=== PATIENT | female | born 1970 | race Caucasian/White ===

== ENCOUNTER 2017-04-24 18:09 | Emergency (ER) | payer BC ==
[2017-04-24 20:08] VITALS: BP 131/73
--- NOTE | 2017-04-24 20:14 | RAD ---
HISTORY: Left hip pain with weightbearing COMPARISONS: None VIEWS: 4, Frontal view of the pelvis with frontal and frog-leg views of the left hip FINDINGS: BONE DENSITY: Normal. BONES: There is no displaced fracture. JOINTS: There is mild osteoarthritis of the hips and SI joints bilaterally. ALIGNMENT: There is no dislocation. SOFT TISSUES: Unremarkable. OTHER FINDINGS: None. IMPRESSION: OSTEOARTHRITIS. NO ACUTE OSSEOUS INJURY. IF SYMPTOMS PERSIST, RECOMMEND REPEAT IMAGING.
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
== END 2017-04-24 20:34 | disposition home or self-care (01) ==
LOC: UCCORT 18:09
DX: S73.102A Unspecified sprain of left hip, initial encounter (principal); X50.9XXA Other and unspecified overexertion or strenuous movements or postures, initial encounter; Y93.89 Activity, other specified; Y92.9 Unspecified place or not applicable; M16.12 Unilateral primary osteoarthritis, left hip; E66.9 Obesity, unspecified; Z88.5 Allergy status to narcotic agent; Z88.2 Allergy status to sulfonamides; Z88.1 Allergy status to other antibiotic agents; Z91.041 Radiographic dye allergy status; Z91.040 Latex allergy status
CPT/HCPCS: 99213; G0463

== ENCOUNTER 2017-06-23 09:53 | Emergency (ER) | payer BC ==
--- NOTE | 2017-06-23 11:48 | UC ---
Lower Extremity/Ankle HPI - HPI Summary HPI Summary: right calf pain and swelling began last night and is worse this morning--calf feels tight no SOB, PMH of DVT a few year ago - History of Current Complaint Chief Complaint: UCLowerExtremity Stated Complaint: RED AREA ON CALF OF LEG Time Seen by Provider: 06/23/17 11:37 Hx Obtained From: Patient Hx Last Menstrual Period: merina ?: No Onset/Duration: Sudden Onset, Lasting Days - began last night, Still Present, Worse Since - over night Severity Initially: Moderate Severity Currently: Moderate Pain Intensity: 4 Aggravating Factor(s): Nothing Alleviating Factor(s): Nothing Able to Bear Weight: Yes - Allergies/Home Medications Allergies/Adverse Reactions: Allergies Allergy/AdvReac Type Severity Reaction Status Date / Time MS Latex [Latex] Allergy Severe Difficulty Verified 06/23/17 10:04 Breathing MS Sulfa Antibiotics Allergy Severe See Comment Verified 06/23/17 10:04 [Sulfa Antibiotics] MS Benzonatate [Benzonatate] Allergy Intermediate Vomiting Verified 06/23/17 10: 04 MS Clindamycin [Clindamycin] Allergy Intermediate Diarrhea Verified 06/23/17 10: 04 MS Eletriptan [From Relpax] Allergy Intermediate See Comment Verified 06/23/17 10:04 MS Sumatriptan [From Imitrex] Allergy Intermediate See Comment Verified 10:04 MS Citalopram [From Celexa] Allergy Mild See Comment Verified 06/23/17 10:04 MS Oxycodone [From Percocet] Allergy Mild See Comment Verified 06/23/17 10:04 MS Iodinated Diagnostic Allergy Rash Verified 06/23/17 10:04 Agents [Iodinated Diagnostic Agents] Home Medications: Home Medications Melatonin 5 mg PO QPM 06/23/17 [History Confirmed 06/23/17] PMH/Surg Hx/FS Hx/Imm Hx Previously Healthy: No - Chronic pain Cardiovascular History: Hypertension GI/ History: Gastroesophageal Reflux - Surgical History Surgical History: Yes Surgery Procedure, Year, and Place: L3-L5 Laminectomy, 10/17/13, [facility] [place]; Appendectomy , , [facility] [place] - Family History Known Family History: Positive: Diabetes - Social History Occupation: Employed Full-time Lives: With Family Alcohol Use: None Alcohol Amount: 6 TIMES A YEAR Substance Use Type: None Smoking Status (MU): Never Smoked Tobacco - Immunization History Most Recent Influenza Vaccination: December 2016 Most Recent Tetanus Shot: unk Most Recent Pneumonia Vaccination: unk Review of Systems Constitutional: Chills Skin: Other - erythemic right lower leg Eyes: Negative ENT: Negative Respiratory: Negative Cardiovascular: Negative Gastrointestinal: Negative Genitourinary: Negative Motor: Negative Neurovascular: Negative Musculoskeletal: Myalgia - right lower extremity Neurological: Negative Psychological: Negative Is Patient Immunocompromised?: No All Other Systems Reviewed And Are Negative: Yes Physical Exam Triage Information Reviewed: Yes Appearance: Well-Appearing, No Pain Distress, Obese Vital Signs: Initial Vital Signs Temp 97.2 F 06/23/17 10:05 Pulse 80 06/23/17 10:05 Resp 18 06/23/17 10:05 BP 133/89 06/23/17 10:05 Pulse Ox 100 06/23/17 10:05 Vital Signs Reviewed: Yes Eye Exam: Normal Eyes: Positive: Conjunctiva Clear ENT Exam: Normal ENT: Positive: Normal ENT inspection, Hearing grossly normal, Pharynx normal, TMs normal, Uvula midline. Negative: Nasal congestion, Nasal drainage, Tonsillar swelling, Tonsillar exudate, Trismus, Muffled voice, Hoarse voice, Dental tenderness, Sinus tenderness Dental Exam: Normal Neck exam: Normal Neck: Positive: Supple, Nontender, No Lymphadenopathy Respiratory Exam: Normal Respiratory: Positive: Chest non-tender, Lungs clear, Normal breath sounds, No respiratory distress, No accessory muscle use Cardiovascular Exam: Normal Cardiovascular: Positive: RRR, No Murmur, Pulses Normal, Brisk Capillary Refill Musculoskeletal Exam: Normal Musculoskeletal: Positive: Edema @ - right lower and left lower extremity R>L Neurological Exam: Normal Neurological: Positive: Alert Psychological Exam: Normal Skin Exam: Normal Diagnostics - Laboratory Diagnostic Studies Completed/Ordered: US-no evidence of DVT Right leg Lower Extremity Course/Dx - Course Course Of Treatment: elevate leg, warm compress, keflex, tylenol/ibuprofen prn pain follow with pcp - Differential Dx/Diagnosis Provider Diagnoses: right lower extremity cellulitis Discharge - Discharge Plan Condition: Stable Disposition: HOME Prescriptions: Cephalexin CAP* [Keflex CAP*] 500 mg PO QID #40 cap Patient Education Materials: Cellulitis (ED), Warm Compress or Soak (ED) Forms: *Work Release Referrals: Mamta Knox MD [Primary Care Provider] - 3 Days
--- NOTE | 2017-06-23 12:44 | RAD ---
HISTORY: Left calf erythema and pain TECHNIQUE: Multiple transverse and longitudinal ultrasound images were obtained of the veins of the left lower extremity using grayscale, color Doppler, and spectral Doppler imaging with and without compression and with augmentation. FINDINGS: VEINS: The common femoral vein, deep femoral vein, femoral vein and popliteal vein are compressible throughout their course, with normal flow on color Doppler imaging and normal response to augmentation on spectral Doppler imaging. SOFT TISSUES: Multiple lymph nodes are visualized in the right groin the largest measuring 3.8 x 0.9 x 1.8 cm. Morphologically the lymph nodes do not appear to be abnormal. IMPRESSION: No sonographic evidence of deep vein thrombosis.
[2017-06-23 13:03] VITALS: BP 128/86
== END 2017-06-23 13:34 | disposition home or self-care (01) ==
LOC: UCEAST 09:53
DX: L03.115 Cellulitis of right lower limb (principal); R68.83 Chills (without fever); M79.1 Myalgia; I10 Essential (primary) hypertension; K21.9 Gastro-esophageal reflux disease without esophagitis; E66.9 Obesity, unspecified; Z88.5 Allergy status to narcotic agent; Z88.2 Allergy status to sulfonamides; Z88.8 Allergy status to other drugs, medicaments and biological substances; Z88.1 Allergy status to other antibiotic agents; Z91.041 Radiographic dye allergy status; Z91.040 Latex allergy status
CPT/HCPCS: 99212; G0463

== ENCOUNTER 2018-04-26 09:44 | Day surgery (SDC) | payer BC ==
[2018-04-26] MEDS ORDERED: Lidocaine 1% INJ* 10 MG/ML 30 ML SDV ONE (11:04)
[2018-04-26] MEDS ORDERED: Bupivacaine 0.5%* 50 ML VIAL ONE (11:05)
[2018-04-26] MEDS ORDERED: Dexamethasone IV* 4 MG/ML 1 ML (4 MG) ONE (11:05)
[2018-04-26 12:06] VITALS: BP 126/63
--- NOTE | 2018-04-26 15:43 | OP ---
DATE OF OPERATION: 04/26/18 [facility] DATE OF : 70 SURGEON: Kingsley Castro DPM. ROLL FORMING SUPERVISOR: None. ANESTHESIA: Local anesthesia. PRE-OP DIAGNOSES: Osteomyelitis, ulceration, and cellulitis second right toe. POST-OP DIAGNOSES: Osteomyelitis, ulceration, and cellulitis second right toe. OPERATIVE PROCEDURE: Amputation of second right toe. PATHOLOGY: Amputated digit and aerobic, anaerobic, and fungal cultures. HEMOSTASIS: Pneumatic ankle tourniquet. ESTIMATED BLOOD LOSS: Less than 10 cc. INDICATIONS: The patient with chronic painful hammertoe deformity with recurrent ulceration at the distal second right toe. She has had recent cellulitis and radiographs demonstrate findings consistent with osteomyelitis of the distal and middle phalanges of the second right toe. The patient has numerous allergies to antibiotics and to treat this infection, reduce pain, and minimize further antibiotic exposure, amputation of the digit is necessary. DESCRIPTION OF PROCEDURE: The patient was brought into the operating room and kept on the patient transport cart. The patient was prepped and draped in the usual fashion. Next, a 1:1 mixture of 1% lidocaine plain and 0.5% Marcaine plain were infiltrated as a digital block to the second right toe. Next, after assuring adequate anesthesia, two converging semi-elliptical incisions were made near the proximal interphalangeal joint and dissection was carried deep to the level of the joint where the digit was disarticulated at the proximal interphalangeal joint. A portion of the distal phalanx was also resected and a rongeur was used to ensure no sharp or rough edges. The surgical site was flushed with copious amounts of normal sterile saline. Culture swabs were taken for aerobic, anaerobic, and fungal cultures. The tendinous structures and deep tissue were reapproximated over the distal aspect of the amputation site and the subcutaneous tissues were also reapproximated with 4-0 Vicryl. The skin was then reapproximated with 4-0 nylon. The incision was dressed with Xeroform gauze and a bulky sterile dressing was applied and secured with Coban. Having appeared to have tolerated the procedures and anesthesia well, the patient was transported via cart from the operating room to Recovery in satisfactory condition and with capillary refill intact to the right foot. [id number]/[facility] #: [id number] [facility]
== END 2018-04-26 12:17 | disposition home or self-care (01) ==
LOC: OREAST 09:44
PROVIDERS: ATTEND Podiatrist Foot Surgery
DX: L03.031 Cellulitis of right toe (principal); M86.171 Other acute osteomyelitis, right ankle and foot; L97.518 Non-pressure chronic ulcer of other part of right foot with other specified severity; E11.9 Type 2 diabetes mellitus without complications; I10 Essential (primary) hypertension; J45.909 Unspecified asthma, uncomplicated; Z88.8 Allergy status to other drugs, medicaments and biological substances
CPT/HCPCS: 87070; 87073; 87102; 87205; 88305; 88311; J1100

== ENCOUNTER 2018-11-13 17:24 | Emergency (ER) | payer BC ==
--- OUTSIDE RECORDS SUMMARY | 2018-11-13 17:46 | XMS REPORT | Continuity of Care Document ---
:1970 External Reference #:[id number] Author Name Paul Joel DO MPH Address [address] [place] [address], [address] [place] [address] Care Team Providers Name Role Phone Mamta Knox M.D. Care Team Information Golf Course Manager Unavailable Mamta Knox M.D. 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 ETOH Use Rarely consumes alcohol Tobacco Use Start: Unknown Patient has never smoked Recreational Drug Use Denies Drug Use Smoking Status Reviewed: 11/08/18 Patient has never smoked Allergies, Adverse Reactions, Alerts Active Allergies Reaction Severity Comments Date Benzonatate GI reaction 01/11/2018 Lisinopril Urticaria 01/11/2018 Vinay Inhibitors swelling 01/11/2018 Augmentin Urticaria 01/11/2018 Celexa 01/11/2018 Contrast Dye 01/11/2018 Clindamycin 01/11/2018 Doxycycline 01/11/2018 Imitrex 01/11/2018 Latex 01/11/2018 Percocet 01/11/2018 Relpax 01/11/2018 Sulfa Antibiotics 01/11/2018 Medications Active Medications SIG Qnty Indications Ordering Date Provider Gabapentin si by mouth 180caps Paul Joel, 02/28/2018 300mg q8-12h as DO MPH Capsules directed code d 3 month due to insurance Oxycodone HCL si by mouth 120tabs Paul Joel, 01/11/2018 5mg every 4 to 6 DO, MPH Tablets hours as directed chronic pain patient Otezla 1 po q12h 60tabs Unknown 30mg Tablets Aleve Unknown 220mg Capsules Folic Acid 1 by mouth every Unknown 1mg Tablets day Vitamin B-6 si by mouth Unknown 500mg every day as Tablets directed Triamcinolone apply to the Unknown Acetonide affected area 0.1% Cream twice a day Stelara Unknown 130mg/26ML Solution Requip take 1 by mouth Unknown 1mg Tablets every evening as directed chronic. Potassium Chloride ER Unknown 10Meq Capsules ER Omeprazole 1 by mouth every Unknown 40mg day Capsules DR Gardiner (52 MG) Unknown 20mcg/24HR IUD Metrogel apply twice daily Unknown 1% Gel Iron High-Potency 1 by mouth daily Unknown 325mg Tablets Lasix 1 by mouth in the Unknown 20mg Tablets morning Bentyl 2 by mouth twice Unknown 10mg Capsules daily [facility] Vitamin B-12 1 by mouth daily Unknown 1000mcg Tablets Cetirizine HCL 1 by mouth daily Unknown 10mg Tablets Bisoprolol 2 by mouth daily Unknown Fumarate/Hydrochlorot hiazide 5-6.25mg Tablets Amitriptyline HCL 1 by mouth every Unknown 10mg at bedtime as Tablets directed Albuterol Inhalation 2 puffs every 4-6 Unknown hours for 90mcg/Dose Aerosol shortness of breath History Medications Gabapentin take 1 capsules by Unknown - 02/28/2018 100mg Capsules mouth every 8 hours ud. chronic pain. Hydrocodone-Acetaminophen take 1 tablet by mouth Unknown - 5-325mg every 8 hours as Tablets directed chronic pain. Methotrexate 4 by mouth once weekly Unknown - 08/10/2018 2.5mg Tablets Spiriva Handihaler 2 puffs inhaled daily Unknown - 08/10/2018 18mcg Capsules Vital Signs Date Vital Result Comment 11/08/2018 11:30am BP Systolic 132 mmHg BP Diastolic 84 mmHg Heart Rate 88 /min Respiratory Rate 20 /min Height 66 inches 5'6" Weight 323.00 lb Pain Level 7 Pain at this time. Pain Level With Medicine 7 on average with meds Pain Level Without Medicine 9 without meds BMI (Body Mass Index) 52.1 kg/m2 10/11/2018 11:04am BP Systolic 130 mmHg BP Diastolic 84 mmHg Heart Rate 82 /min Respiratory Rate 20 /min Height 66 inches 5'6" Weight 324.00 lb Pain Level 8 Pain at this time. Pain Level With Medicine 7 on average with meds Pain Level Without Medicine 9 01/22 without meds BMI (Body Mass Index) 52.3 kg/m2 09/07/2018 2:31pm BP Systolic 134 mmHg BP Diastolic 82 mmHg Heart Rate 80 /min Respiratory Rate 20 /min Height 66 inches 5'6" Weight 331.00 lb Pain Level 8 Pain at this time. Pain Level With Medicine 6 on average with meds Pain Level Without Medicine 10 02/21 without meds BMI (Body Mass Index) 53.4 kg/m2 08/10/2018 9:04am BP Systolic 132 mmHg BP Diastolic 84 mmHg Heart Rate 80 /min Respiratory Rate 20 /min Height 66 inches 5'6" Weight 334.00 lb Pain Level 7 Pain at this time. Pain Level With Medicine 7 on average with meds Pain Level Without Medicine 10 02/21 without meds BMI (Body Mass Index) 53.9 kg/m2 06/29/2018 2:02pm BP Systolic 144 mmHg BP Diastolic 82 mmHg Heart Rate 84 /min Respiratory Rate 20 /min Height 66 inches 5'6" Weight 338.00 lb Pain Level 8 Pain at this time. Pain Level With Medicine 6 on average with meds Pain Level Without Medicine 10 02/21 without meds BMI (Body Mass Index) 54.5 kg/m2 06/01/2018 9:36am BP Systolic 138 mmHg BP Diastolic 84 mmHg Heart Rate 82 /min Respiratory Rate 20 /min Height 66 inches 5'6" Weight 338.00 lb Pain Level 6 Pain at this time. Pain Level With Medicine 6 on average with meds Pain Level Without Medicine 10 02/21 without meds BMI (Body Mass Index) 54.5 kg/m2 04/25/2018 11:20am BP Systolic 130 mmHg BP Diastolic 78 mmHg Heart Rate 74 /min Respiratory Rate 20 /min Height 66 inches 5'6" Weight 334.00 lb Pain Level 8 Pain at this time. Pain Level With Medicine 7 on average with meds Pain Level Without Medicine 10 02/21 without meds BMI (Body Mass Index) 53.9 kg/m2 03/28/2018 3:25pm BP Systolic 138 mmHg BP Diastolic 86 mmHg Heart Rate 84 /min Respiratory Rate 20 /min Height 66 inches 5'6" Weight 336.00 lb Pain Level 6 Pain at this time. Pain Level With Medicine 5 on average with meds Pain Level Without Medicine 10 02/21 without meds BMI (Body Mass Index) 54.2 kg/m2 02/28/2018 2:11pm BP Systolic 132 mmHg BP Diastolic 84 mmHg Heart Rate 86 /min Respiratory Rate 20 /min Height 66 inches 5'6" Weight 336.00 lb Pain Level 8 Pain at this time. Pain Level With Medicine 7 on average with meds Pain Level Without Medicine 10 02/21 without meds BMI (Body Mass Index) 54.2 kg/m2 01/25/2018 1:57pm BP Systolic 132 mmHg BP Diastolic 78 mmHg Heart Rate 74 /min Respiratory Rate 20 /min Height 66 inches 5'6" Weight 336.00 lb Pain Level 6 Pain at this time. Pain Level With Medicine 6 on average with meds Pain Level Without Medicine 10 02/21 without meds BMI (Body Mass Index) 54.2 kg/m2 01/11/2018 2:22pm BP Systolic 150 mmHg BP Diastolic 86 mmHg Heart Rate 88 /min Respiratory Rate 20 /min Height 66 inches 5'6" Weight 336.00 lb Pain Level 6 Pain at this time. Pain Level Without Medicine 10 02/21 without meds BMI (Body Mass Index) 54.2 kg/m2 Procedures Date Code Description Status 10/11/2018 76975 Omt 3-4 Body Regions Completed 09/07/2018 95612 Omt 1-2 Body Regions Completed 06/29/2018 24036 Therapeutic, Prophylactic Or Diagnostic Injection Subq/Im Completed 06/29/2018 48513 Brief Emotional/Behav Assessment W/ Scoring Doc Per Completed Standard Inst 06/01/2018 66394 Therapeutic, Prophylactic Or Diagnostic Injection Subq/Im Completed 04/25/2018 98552 Omt 3-4 Body Regions Completed 04/25/2018 47345 Therapeutic, Prophylactic Or Diagnostic Injection Subq/Im Completed 03/28/2018 06393 Omt 3-4 Body Regions Completed 03/28/2018 88465 Therapeutic, Prophylactic Or Diagnostic Injection Subq/Im Completed 02/28/2018 41863 Omt 3-4 Body Regions Completed 02/28/2018 86762 Therapeutic, Prophylactic Or Diagnostic Injection Subq/Im Completed 01/25/2018 88697 Omt 1-2 Body Regions Completed 01/25/2018 98190 Therapeutic, Prophylactic Or Diagnostic Injection Subq/Im Completed Encounters Type Date Location Provider Dx Diagnosis Office Visit 10/11/2018 Main Office as Paul Joel G89.28 Other chronic 11:00a Of 06/15/13 DO, MPH postprocedural pain M15.0 Primary generalized (osteo)arthritis M54.2 Cervicalgia M99.01 Segmental and somatic dysfunction of cervical region M54.6 Pain in thoracic spine M99.02 Segmental and somatic dysfunction of thoracic region M25.512 Pain in left shoulder M25.511 Pain in right shoulder M99.07 Segmental and somatic dysfunction of upper extremity Z79.891 [facility] (current) use of opiate analgesic Office Visit 09/07/2018 2:30p Main Office Paul Joel G89.28 Other chronic as Of 06/15/13 DO, MPH postprocedural pain M15.0 Primary generalized (osteo)arthritis M54.2 Cervicalgia M99.01 Segmental and somatic dysfunction of cervical region M54.6 Pain in thoracic spine M99.02 Segmental and somatic dysfunction of thoracic region M54.5 Low back pain Z79.891 M[facility] (current) use of opiate analgesic Office Visit 08/10/2018 9:00a Main Office Paul Joel G89.28 Other chronic as Of 06/15/13 DO, MPH postprocedural pain M15.0 Primary generalized (osteo)arthritis M54.2 Cervicalgia M99.01 Segmental and somatic dysfunction of cervical region M54.6 Pain in thoracic spine M99.02 Segmental and somatic dysfunction of thoracic region M54.5 Low back pain M99.03 Segmental and somatic dysfunction of lumbar region Z79.891 rn long term care (current) use of opiate analgesic Office Visit 06/29/2018 1:45p Main Office Paul Joel, G89.28 Other chronic as Of 06/15/13 DO, MPH postprocedural pain M15.0 Primary generalized (osteo)arthritis M54.2 Cervicalgia M54.5 Low back pain R53.83 Other fatigue Z79.891 M[facility] (current) use of opiate analgesic Z13.31 Encounter for screening for depression Office Visit 06/01/2018 9:45a Main Office Paul Joel, G89.28 Other chronic as Of 06/15/13 DO, MPH postprocedural pain M15.0 Primary generalized (osteo)arthritis M54.2 Cervicalgia M54.6 Pain in thoracic spine M54.5 Low back pain R53.83 Other fatigue Z79.891 MCC (current) use of opiate analgesic Office Visit 04/25/2018 11:30a Main Office Paul Joel, G89.28 Other chronic as Of 06/15/13 DO, MPH postprocedural pain M15.0 Primary generalized (osteo)arthritis M54.2 Cervicalgia M99.01 Segmental and somatic dysfunction of cervical region M54.6 Pain in thoracic spine M99.02 Segmental and somatic dysfunction of thoracic region M54.5 Low back pain M99.03 Segmental and somatic dysfunction of lumbar region M79.674 Pain in right toe(s) R53.83 Other fatigue Z79.891 MCC (current) use of opiate analgesic Office Visit 03/28/2018 3:15p Main Office Paul Joel, G89.28 Other chronic as Of 06/15/13 DO, MPH postprocedural pain M15.0 Primary generalized (osteo)arthritis M54.5 Low back pain M99.03 Segmental and somatic dysfunction of lumbar region M54.2 Cervicalgia M99.01 Segmental and somatic dysfunction of cervical region M54.6 Pain in thoracic spine M99.02 Segmental and somatic dysfunction of thoracic region M79.604 Pain in right leg R53.83 Other fatigue Z79.891 rn long term care (current) use of opiate analgesic Office Visit 02/28/2018 2:30p Main Office as Paul Joel, G89.29 Other chronic Of 06/15/13 DO, MPH pain M15.0 Primary generalized (osteo)arthritis M54.2 Cervicalgia M99.01 Segmental and somatic dysfunction of cervical region M54.6 Pain in thoracic spine M99.02 Segmental and somatic dysfunction of thoracic region M54.5 Low back pain M99.03 Segmental and somatic dysfunction of lumbar region R53.83 Other fatigue Z79.891 rn long term care (current) use of opiate analgesic Office Visit 01/25/2018 2:00p Main Office as Paul Joel G89.29 Other chronic Of 06/15/13 DO MPH pain M54.2 Cervicalgia M99.01 Segmental and somatic dysfunction of cervical region M15.0 Primary generalized (osteo)arthritis M54.17 Radiculopathy, lumbosacral region M79.605 Pain in left leg M79.604 Pain in right leg R53.83 Other fatigue Z79.891 MCC (current) use of opiate analgesic Office Visit 01/11/2018 1:45p Main Office as Paul Joel G89.29 Other chronic Of 06/15/13 JAEL MARIE pain M54.5 Low back pain L40.50 Arthropathic psoriasis, unspecified M96.1 Postlaminectomy syndrome, not elsewhere classified M15.0 Primary generalized (osteo)arthritis M79.604 Pain in right leg M54.17 Radiculopathy, lumbosacral region M79.605 Pain in left leg M79.671 Pain in right foot M79.672 Pain in left foot M25.561 Pain in right knee Z79.891 [facility] (current) use of opiate analgesic Z71.89 Other specified counseling Z71.3 Dietary counseling and surveillance M25.562 Pain in left knee Plan of Treatment Future Appointment(s):12/06/2018 11:00 am - Paul Joel DO, MPH at Main Office as Of 06/15/1405 - Paul Joel DO, MPHG89.28 Other chronic postprocedural painComments:Chronic. Symptoms and complaints discussed and reviewed today. No significant changes in physical findings. Continue current medical pain management.M15.0 Primary generalized (osteo)arthritisComments: Chronic. Symptoms and complaints discussed and reviewed today. No significant changes in physical findings. Continue current medical pain management.M25.512 Pain in left shoulderComments:Chronic. Symptoms and complaints discussed and reviewed today. No significant changes in physical findings. Continue current medical pain management.M25.511 Pain in right shoulderComments:Chronic. Symptoms and complaints discussed and reviewed today. No significant changes in physical findings. Continue current medical pain management.M54.6 Pain in thoracic spineComments:Chronic.Symptoms and complaints discussed and reviewed today. No significant changes in physical findings. Continue current medical pain management.M54.2 CervicalgiaComments:Chronic. Symptoms and complaints discussed and reviewed today. No significant changes in physical findings. Continue current medical pain management.Z79.891 rn long term care (current) use of opiate analgesicNew Labs:Urine Drug Screen, Ordered: 11/08/18Comments:Urine drug screen sample taken today to monitor opiate use and to monitor use of illicit substances.Will discuss results at next appointment.The following tests were ordered:6 AM, AMPH, VALENCIA, DOMINIC, BUP, CARIS, COCM, COT, ETG, FENT, MCSHSG, OPI, OXY, PCP, TAPEN, XTSY, ZOLP. A urine drug test (UDT) was ordered for this patient and collected on site today. Creatinine has been ordered as well for specimen validity, not for kidney function. Preliminary UDT results are not final and should not be used to determine patient care or plan of treatment. Initially a qualitative immunoassay screen will be done. Any inconsistent or positive findings will be further tested with a more comprehensive quantitative confirmation LCMS study. It is part of the treatment process of prescribing controlled substances and is considered standard of care.AllComments:Continue current medical pain management; injection therapy, osteopathic manipulation, PT / modalities, and consults as needed to manage chronic pain.Non - opioid pain management discussed and optionsdiscussed.Side effects discussed; anticipatory guidance given. Patient clearly understand and agree with all medical treatments and suggestions. All medicines prescribed are adequate and appropriate for this patient's complaint of pain, medical history, physical, and personal goals.Goals of Treatment are to provide adequate and appropriate multidisciplinary medical pain management to increase/ maintain patient's quality of life and functionality while maintaining satisfactory side effect profile andminimizing manager long term care end-organ damage. Importance of regular nutrition throughout the day discussed.Activity as toleratedContinue with PCP
--- OUTSIDE RECORDS SUMMARY | 2018-11-13 17:47 | XMS REPORT | Continuity of Care Document ---
:1970 External Reference #:[id number] Author Name Paul Joel DO MPH Address [address] [place] [address], [address] [place] [address] Care Team Providers Name Role Phone Mamta Knox M.D. Care Team Information Rural Sociologist Unavailable Mamta Knox M.D. 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 ETOH Use Rarely consumes alcohol Tobacco Use Start: Unknown Patient has never smoked Recreational Drug Use Denies Drug Use Smoking Status Reviewed: 10/11/18 Patient has never smoked Allergies, Adverse Reactions, [...] Capsules Vital Signs Date Vital Result Comment 10/11/2018 11:04am BP Systolic 130 mmHg BP [...] with meds Pain Level Without Medicine 10 10/10 without meds BMI (Body Mass Index) 53.9 [...] 54.2 kg/m2 Procedures Date Code Description Status 09/07/2018 51398 Omt 1-2 Body Regions Completed 06/29/2018 16559 Therapeutic, Prophylactic Or Diagnostic Injection Subq/Im Completed 06/29/2018 76027 Brief Emotional/Behav Assessment W/ Scoring Doc Per Completed Standard Inst 06/01/2018 10584 Therapeutic, Prophylactic Or Diagnostic Injection Subq/Im Completed 04/25/2018 26690 Omt 3-4 Body Regions Completed 04/25/2018 88023 Therapeutic, Prophylactic Or Diagnostic Injection Subq/Im Completed 03/28/2018 78943 Omt 3-4 Body Regions Completed 03/28/2018 55400 Therapeutic, Prophylactic Or Diagnostic Injection Subq/Im Completed 02/28/2018 82745 Omt 3-4 Body Regions Completed 02/28/2018 66748 Therapeutic, Prophylactic Or Diagnostic Injection Subq/Im Completed 01/25/2018 64632 Omt 1-2 Body Regions Completed 01/25/2018 32350 Therapeutic, Prophylactic Or Diagnostic Injection Subq/Im Completed Encounters Type Date Location Provider Dx Diagnosis Office Visit 09/07/2018 Main Office as Paul Joel G89.28 Other chronic 2:30p Of 06/15/13 DO, MPH postprocedural pain M15.0 Primary generalized (osteo)arthritis M54.2 Cervicalgia M99.01 Segmental and somatic dysfunction of cervical region M54.6 Pain in thoracic spine M99.02 Segmental and somatic dysfunction of thoracic region M54.5 Low back pain Z79.891 [facility] (current) use of opiate analgesic Office Visit 08/10/2018 9:00a Main Office Paul Joel G89.28 Other chronic as Of 06/15/13 DO, MPH postprocedural pain M15.0 Primary generalized (osteo)arthritis M54.2 Cervicalgia M99.01 Segmental and somatic dysfunction of cervical region M54.6 Pain in thoracic spine M99.02 Segmental and somatic dysfunction of thoracic region M54.5 Low back pain M99.03 Segmental and somatic dysfunction of lumbar region Z79.891 terminal carman (current) use of opiate analgesic Office Visit 06/29/2018 1:45p Main Office Paul Joel G89.28 Other chronic as Of 06/15/13 DO, MPH postprocedural pain M15.0 Primary generalized (osteo)arthritis M54.2 Cervicalgia M54.5 Low back pain R53.83 Other fatigue Z79.891 terminal carman (current) use of opiate analgesic Z13.31 Encounter for screening for depression Office Visit 06/01/2018 9:45a Main Office Paul Joel G89.28 Other chronic as Of 06/15/13 DO, MPH postprocedural pain M15.0 Primary generalized (osteo)arthritis M54.2 Cervicalgia M54.6 Pain in thoracic spine M54.5 Low back pain R53.83 Other fatigue Z79.891 terminal carman (current) use of opiate analgesic Office Visit 04/25/2018 11:30a Main Office Paul Joel G89.28 Other chronic as Of 06/15/13 DO, MPH postprocedural pain M15.0 Primary generalized (osteo)arthritis M54.2 Cervicalgia M99.01 Segmental and somatic dysfunction of cervical region M54.6 Pain in thoracic spine M99.02 Segmental and somatic dysfunction of thoracic region M54.5 Low back pain M99.03 Segmental and somatic dysfunction of lumbar region M79.674 Pain in right toe(s) R53.83 Other fatigue Z79.891 terminal carman (current) use of opiate analgesic Office Visit [...] in right leg R53.83 Other fatigue Z79.891 [facility] (current) use of opiate analgesic Office Visit 02/28/2018 2:30p Main Office as Paul Joel G89.29 Other chronic Of 06/15/13 DO, MPH pain M15.0 Primary generalized (osteo)arthritis M54.2 Cervicalgia M99.01 Segmental and somatic dysfunction of cervical region M54.6 Pain in thoracic spine M99.02 Segmental and somatic dysfunction of thoracic region M54.5 Low back pain M99.03 Segmental and somatic dysfunction of lumbar region R53.83 Other fatigue Z79.891 [facility] (current) use of opiate analgesic Office Visit 01/25/2018 2:00p Main Office as Paul Joel G89.29 Other chronic Of 06/15/13 DO, MPH pain M54.2 Cervicalgia M99.01 Segmental and somatic dysfunction of cervical region M15.0 Primary generalized (osteo)arthritis M54.17 Radiculopathy, lumbosacral region M79.605 Pain in left leg M79.604 Pain in right leg R53.83 Other fatigue Z79.891 [facility] (current) use of opiate analgesic Office Visit 01/11/2018 1:45p Main Office as Paul Joel G89.29 Other chronic Of 06/15/13 , MPH pain M54.5 Low back pain L40.50 Arthropathic psoriasis, unspecified M96.1 Postlaminectomy syndrome, not elsewhere classified M15.0 Primary generalized (osteo)arthritis M79.604 Pain in right leg M54.17 Radiculopathy, lumbosacral region M79.605 Pain in left leg M79.671 Pain in right foot M79.672 Pain in left foot M25.561 Pain in right knee Z79.891 [facility] (current) use of opiate analgesic Z71.89 Other specified counseling Z71.3 Dietary counseling and surveillance M25.562 Pain in left knee Plan of Treatment Future Appointment(s):11/08/2018 11:00 am - Paul Joel DO, MPH at Main Office as Of 06/15/1404 - Paul Joel DO, MPHG89.28 Other chronic [...] in physical findings. Continue current medical pain management.M99.01 Segmental and somatic dysfunction of cervical regionComments:Chronic. Symptoms and complaints discussed and reviewed today. Somatic dysfunctions noted warrantingOMT. Continue current medical pain management and OMT. [id number]. OMT performed.M54.6 Pain in thoracic spineComments: Chronic.Symptoms and complaints discussed and reviewed today. No significant changes in physical findings. Continue current medical pain management.M99.02 Segmental and somatic dysfunction of thoracic regionComments:Chronic. Symptoms and complaints discussed and reviewed today. Notable somatic dysfunctions noted warranting OMT. Continue current medical pain management and OMT. [id number]. OMT performed after evaluation. HVLA.M25.512 Pain in left shoulderComments: Chronic. Symptoms and complaints discussed and reviewed today. No significant changes in physical findings. Continue current medical pain management.M25.511 Pain in right shoulderComments:Chronic. Symptoms and complaints discussed and reviewed today. No significant changes in physical findings. Continue current medical pain management.M99.07 Segmental and somatic dysfunction of upper extremityComments:Chronic. Symptoms and complaints discussed and reviewed today. Somatic dysfunctions noted warrantingOMT to the shoulder. Continue current medical pain management and OMT. Myofascial restrictions. OMTperformed. R.Z79.891 terminal carman (current) use of opiate analgesicNew Labs:Urine Drug Screen, Ordered: 10/11/18Comments:Urine drug screen sample taken today to monitor [...] controlled substances and is considered standard of care.AllComments:All above symptoms and complaints discussed as well as diagnoses reviewed.Continue trial of opioid pain management - note changes below; injection therapy, osteopathic manipulation ( OMT), PT / modalities, and consults as needed to manage chronic pain.Side effects discussed; anticipatory guidance given. Patient clearly understands and agrees with all medical treatments and suggestions. All medicines prescribed are adequate and appropriate for this patient's complaint of pain, medical history, physical, and personal goals.Goals of Treatment are to provide adequate and appropriate multidisciplinary medical pain management to increase/ maintain patient's quality of life and functionality while maintaining satisfactory side effect profile and minimizing detention end-organ damage. Activity as toleratedContinue with PCP
--- OUTSIDE RECORDS SUMMARY | 2018-11-13 17:47 | XMS REPORT | Continuity of Care Document ---
:1970 External Reference #:[id number] Author Name Anita Marks Care Team Providers Name Role Phone Mamta Knox MD Primary Care Physician Unavailable Payers Date Identification Numbers Payment Provider Subscriber Policy Number: [id number] [employer] Ppo Ladan Bryant Coit PayID: [id number] [address] [address] [place] [address] Expires: 2017 Policy Number: [id number] BS Facets Ladan Bryant Coit PayID: [id number] [address] [address] [place] [address] Expires: 2015 Policy Number: [id number] Francois Bryant Coit Group Name: [id number] [address] PayID: [id number] [place] [address] Problems Active Problems Provider Date Spinal stenosis of lumbar region Jarvis Roland M.D. Onset: 10/04/2013 Carpal tunnel syndrome Jarvis Roland M.D. 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 ETOH Use Denies alcohol use Tobacco Use Start: Unknown Patient has never smoked Recreational Drug Use Denies Drug Use Smoking Status Reviewed: 11/01/18 Patient has never smoked Exercise Type/Frequency Exercises rarely Allergies, Adverse Reactions, Alerts Active Allergies Reaction Severity Comments Date Benzonatate Nausea and Vomiting projectile vomiting 10/03/2013 Celexa Agitation palpitations 10/03/2013 CT Dye Urticaria hives, disorientation, 10/03/2013 omnipaque Latex Urticaria Severe anaphylaxis, hives 10/03/2013 Percocet Nightmares 10/03/2013 Sulfa Antibiotics Edwin Sid Syndrome Severe edwin-sid syndrom Imitrex Severe cardiac reaction 10/04/2013 Relpax Severe cardiac reaction 10/04/2013 Lisinopril Severe hives 12/23/2016 Codeine sedation 12/23/2016 Vinay Inhibitors Severe angioedema 12/23/2016 Clindamycin 12/23/2016 Doxycycline Severe rash, GI 12/23/2016 Medications Active Medications SIG Qnty Indications Ordering Date Provider Enluz Sureclick inject 3.92units Bonifacio Wood, 11/01/2018 subcutaneously 50mg M.D. 50mg/ml Solution every week Auto-Inject Otezla take 1 tablet by 180tabs Bonifacio Wood, 07/11/2018 30mg Tablets mouth twice a day M.D. after finish starter pack after finishing a starter pack Gabapentin take one 90caps L40.50 Bonifacio Wood, 03/29/2017 300mg capsule/tablet by M.D. Capsules mouth twice daily Folic Acid take one tablet 90tabs Bonifacio Wood, 02/10/2017 1mg daily by mouth M.D. Tablets Salivasure use daily as needed 60units Bonifacio Wood, 01/27/2017 for dryness of the M.D. Lozenges mouth B6 Natural take one 60tabs Bonifacio Wood, 01/21/2017 100mg capsule/tablet daily M.D. Tablets by mouth Wrist Splint use daily to help 2units G56.00 Bonifacio Wood, 12/23/2016 Misc with numbness and M.D. tingling in the right and left hand Metronidazole bid Unknown Gel Ropinirole HCL take one by mouth Unknown 1mg at bedtime Tablets Triamcinolone every day as needed Unknown Acetonide 0.1% Ointment Clotrimazole/Betame bid Unknown thasone Dipropionate 1-0.05% Cream Iron (Ferrous one/day Unknown Sulfate) Tablets Benadryl Allergy Unknown 25mg Tablets Melatonin 1 by mouth every Unknown 5mg night prn Capsules Cpap for use while Unknown Device sleeping Furosemide 1 by mouth every day Unknown 20mg Tablets Oxycodone HCL 1 tabs by mouth Unknown 5mg every 4-6 hours as Tablets needed Mirena (52 MG) Unknown 20mcg/24HR IUD Dicyclomine HCL bid Unknown 20mg Tablets Zyrtec Allergy 1 by mouth every day Unknown 10mg Capsules Ziac 2 each morning Unknown 5-6.25mg Tablets Amitriptyline HCL Unknown 10mg Tablets Spiriva Handihaler 1 inhalation by 90caps Unknown mouth every morning 18mcg Capsules Omeprazole 1 by mouth every day 30caps Unknown 40mg Capsules DR Naproxen Sodium 3 by mouth twice a 60tabs Unknown day twice daily 220mg Tablets Ferrous Sulfate 1 by mouth every day Unknown 325(65Fe) mg Tablets Vitamin B12 1 by mouth every day Unknown 1000mcg Tablets Ventolin HFA 2 puffs by mouth 1units Unknown four times a day as 108(90Base) mcg/Act needed Aerosol History Medications Enbrel Sureclick inject 3.92units L40.50 Bonifacio 11/01/2018 - subcutaneously 50mg Cyril Wood 11/01/2018 50mg/ml Solution every week Auto-Inject Otezla day1:10mg in the 55units Bonifacio 07/11/2018 - 10&20&30mg morning, day2:10 mg Cyril Wood 07/11/2018 TBPK bid,day3: 10mg in the morning, 20mg at night, day4:20mg twice a day, day5: 20mg in the m Furosemide infuse 80 mg iv over 1units Bonifacio 03/29/2017 - 30 minutes as Cyril Wood 03/29/2017 10mg/ml Solution directed -dx: i50.42 Methotrexate Take 4 Tablets By 30tabs Z79.899 Bonifacio 02/10/2017 - Mouth Once Weekly On Cyril Wood 07/11/2018 2.5mg Tablets Fridays (not taking) L40.50 Otezla day1:10mg am, 55units Z79.899 Bonifacio Wood, 01/27/2017 - 10&20&30mg day2:10 mg M.D. 02/10/2017 TBPK bid,day3: 10mg am, 20mg pm, day4:20mg bid, day5: 20mg am, 30 mg pm, then continue on 30 mg bid. L40.50 Otezla day1:10mg am, 55units Bonifacio Wood, 01/27/2017 - 10&20&30mg day2:10 mg M.D. 01/27/2017 TBPK bid,day3: 10mg am, 20mg pm, day4:20mg bid, day5: 20mg am, 30 mg pm, then continue on 30 mg bid. Gabapentin 1 by mouth twice 180caps L40.50 Bonifacio Wood, 12/23/2016 - 100mg daily ongoing M.D. 03/29/2017 Capsules Diazepam 1 or 2 by mouth 6tabs 721.1 Jarvis Hdz 10/04/2013 - 5mg Tablets two hours prior Cyril Roland 12/23/2013 to mri, repeat up to once per hour if needed. Bentyl 2 by mouth twice 60caps Unknown - 10mg Capsules a day 12/23/2016 Hydrocodone-Acetamin 1 tab by mouth Unknown - ophen every four hours 12/23/2013 5-500mg Tablets as needed for pain Ketoconazole apply thin film 60gm Unknown - 2% Cream daily 10/04/2013 Lisinopril-Hydrochlo 1 by mouth every 30tabs Unknown - rothiazide day 12/23/2016 20-25mg Tablets Loratadine 1 by mouth every 30tabs Unknown - 10mg day 12/23/2016 Tablets Potassimin 1 by mouth every Unknown - 75mg day 12/23/2016 Tablets Hydrocodone-Acetamin 1 by mouth every M48.06 Unknown - ophen 6 hours as needed 07/11/2018 5-325mg Tablets Potassium 1 by mouth every Unknown - Unsure day 12/23/2016 Tablets Carafate Unknown - 1gm Tablets 12/23/2016 Folic Acid 1 by mouth every Unknown - 1mg day 02/10/2017 Tablets Stelara 1x/month x 2 Unknown - 90mg/ml Soln months, then once 07/11/2018 Prefill Syringe every 3 months (not taking) Cephalexin Unknown - 500mg 07/11/2018 Capsules Immunizations CPT Code Status Date Vaccine Reaction Lot # [id number] Given 07/11/2018 Pneumonia Vaccine no immediate reaction [id number] noted [id number] Given 03/29/2017 Pneumococcal Conjugate no immediate reaction [id number] Vaccine 13 Valent For noted Intramuscular Use Vital Signs Date Vital Result Comment 11/01/2018 12:59pm Height 64.25 inches 5'4.25" Weight 332.38 lb Heart Rate 76 /min BP Systolic Sitting 120 mmHg BP Diastolic Sitting 76 mmHg Pain Level 8 O2 % BldC Oximetry 96 % BMI (Body Mass Index) 56.6 kg/m2 09/13/2018 1:14pm Height 64.25 inches 5'4.25" Weight 336.25 lb Heart Rate 78 /min BP Systolic Sitting 120 mmHg BP Diastolic Sitting 72 mmHg Pain Level 8 O2 % BldC Oximetry 97 % BMI (Body Mass Index) 57.3 kg/m2 07/11/2018 10:10am Height 64.25 inches 5'4.25" Weight 339.00 lb Heart Rate 72 /min BP Systolic Sitting 110 mmHg BP Diastolic Sitting 76 mmHg Respiratory Rate 14 /min Pain Level 6 BMI (Body Mass Index) 57.7 kg/m2 06/27/2017 12:57pm Weight 332.38 lb Heart Rate 76 /min BP Systolic Sitting 132 mmHg BP Diastolic Sitting 82 mmHg Pain Level 6 O2 % BldC Oximetry 96 % 03/29/2017 2:59pm Height 64.25 inches 5'4.25" Weight 329.38 lb Heart Rate 90 /min BP Systolic Sitting 140 mmHg BP Diastolic Sitting 88 mmHg Respiratory Rate 17 /min Pain Level 7 BMI (Body Mass Index) 56.1 kg/m2 01/27/2017 12:02pm Height 64.25 inches 5'4.25" Weight 327.12 lb Heart Rate 90 /min BP Systolic Sitting 132 mmHg BP Diastolic Sitting 78 mmHg Pain Level 8 O2 % BldC Oximetry 97 % BMI (Body Mass Index) 55.7 kg/m2 12/23/2016 10:06am Height 64.25 inches 5'4.25" Weight 329.50 lb Heart Rate 72 /min BP Systolic Sitting 142 mmHg BP Diastolic Sitting 90 mmHg Respiratory Rate 20 /min Pain Level 5 BMI (Body Mass Index) 56.1 kg/m2 12/23/2013 9:58am Height 64.25 inches 5'4.25" Weight 329.00 lb Heart Rate 84 /min BP Systolic Sitting 136 mmHg lg BP Diastolic Sitting 70 mmHg lg Pain Level 3 back BMI (Body Mass Index) 56.0 kg/m2 11/08/2013 11:14am Height 64.25 inches 5'4.25" Weight 324.00 lb Heart Rate 78 /min BP Systolic Sitting 150 mmHg BP Diastolic Sitting 88 mmHg Pain Level 3 back BMI (Body Mass Index) 55.2 kg/m2 10/04/2013 10:54am Height 64.25 inches 5'4.25" Weight 317.00 lb BP Systolic 122 mmHg BP Diastolic 68 mmHg Pain Level 5 low back and legs BMI (Body Mass Index) 54.0 kg/m2 Results Test Date Facility Test Result H/L Range Note Laboratory test 10/[facility] C Reactive 74.35 mg/L High <8.[address] [place] [address] [phone] Erythrocyte Sed Rate 70 mm/Hr High 0-19 CBC Auto Diff 10/31/2018 [facility] White Blood 9.3 10^3/uL N 3.5-10.[address] [place] [address] [phone] Red Blood Count 4.32 10^6/uL N 3.70-4.87 Hemoglobin 11.9 g/dL Low 12.0-16.0 Hematocrit 36 % N 35-47 Mean Corpuscular Volume 82 fL N 80-97 Mean Corpuscular Hemoglobin 28 pg N 27-31 Mean Corpuscular HGB Conc 34 g/dL N 31-36 Red Cell Distribution Width 17 % High 10-15 Platelet Count 278 10^3/uL N 150-450 Mean Platelet Volume 8.1 fL N 7.4-10.4 Abs Neutrophils 6.4 10^3/uL N 1.5-7.7 Abs Lymphocytes 2.1 10^3/uL N 1.0-4.8 Abs Monocytes 0.5 10^3/uL N 0-0.8 Abs Eosinophils 0.2 10^3/uL N 0-0.6 Abs Basophils 0.0 10^3/uL N 0-0.2 Abs Nucleated RBC 0.0 10^3/uL Granulocyte % 68.9 % Lymphocyte % 23.1 % Monocyte % 5.7 % Eosinophil % 2.0 % Basophil % 0.3 % Nucleated Red Blood Cells % 0.1 Comp Metabolic Panel 10/31/2018 [facility] Sodium 137 mmol/L N 135-[address] [place] [address] [phone] Potassium 4.0 mmol/L N 3.5-5.0 Chloride 99 mmol/L Low 101-111 Co2 Carbon Dioxide 28 mmol/L N 22-32 Anion Gap 10 mmol/L N 2-11 Glucose 188 mg/dL High 70-100 Blood Urea Nitrogen 15 mg/dL N 6-24 Creatinine 0.71 mg/dL N 0.51-0.95 BUN/Creatinine Ratio 21.1 High 8-20 Calcium 9.4 mg/dL N 8.6-10.3 Total Protein 6.9 g/dL N 6.4-8.9 Albumin 3.7 g/dL N 3.2-5.2 Globulin 3.2 g/dL N 2-4 Albumin/Globulin Ratio 1.2 N 1-3 Total Bilirubin 0.70 mg/dL N 0.2-1.0 Alkaline Phosphatase 68 U/L N 34-104 Alt 19 U/L N 7-52 Ast 19 U/L N 13-39 Egfr Non- 87.9 >60 Egfr 106.3 >60 1 Laboratory test 09/12/2018 [facility] Erythrocyte Sed 90 mm/Hr High 0-[address] [place] [address] [phone] C Reactive Protein 76.63 mg/L High <8.01 CBC Auto 09/12/2018 [facility] White Blood 12.0 10^3/uL High 3.5-10.[address] [place] [address] [phone] Red Blood Count 4.58 10^6/uL N 3.70-4.87 Hemoglobin 12.5 g/dL N 12.0-16.0 Hematocrit 37 % N 35-47 Mean Corpuscular Volume 82 fL N 80-97 Mean Corpuscular Hemoglobin 27 pg N 27-31 Mean Corpuscular HGB Conc 33 g/dL N 31-36 Red Cell Distribution Width 16 % High 10.5-15 Platelet Count 319 10^3/uL N 150-450 Mean Platelet Volume 8.1 fL N 7.4-10.4 Abs Neutrophils 7.9 10^3/uL High 1.5-7.7 Abs Lymphocytes 3.2 10^3/uL N 1.0-4.8 Abs Monocytes 0.6 10^3/uL N 0-0.8 Abs Eosinophils 0.2 10^3/uL N 0-0.6 Abs Basophils 0.1 10^3/uL N 0-0.2 Abs Nucleated RBC 0 10^3/uL Granulocyte % 65.6 % Lymphocyte % 26.9 % Monocyte % 5.4 % Eosinophil % 1.6 % Basophil % 0.5 % Nucleated Red Blood Cells % 0.1 Comp Metabolic Panel 09/12/2018 [facility] Sodium 135 mmol/L N 135-[address] [place] [address] [phone] Potassium 4.1 mmol/L N 3.5-5.0 Chloride 100 mmol/L Low 101-111 Co2 Carbon Dioxide 25 mmol/L N 22-32 Anion Gap 10 mmol/L N 2-11 Glucose 186 mg/dL High 70-100 Blood Urea Nitrogen 15 mg/dL N 6-24 Creatinine 0.72 mg/dL N 0.51-0.95 BUN/Creatinine Ratio 20.8 High 8-20 Calcium 9.9 mg/dL N 8.6-10.3 Total Protein 7.6 g/dL N 6.4-8.9 Albumin 4.2 g/dL N 3.2-5.2 Globulin 3.4 g/dL N 2-4 Albumin/Globulin Ratio 1.2 N 1-3 Total Bilirubin 0.60 mg/dL N 0.2-1.0 Alkaline Phosphatase 73 U/L N 34-104 Alt 24 U/L N 7-52 Ast 23 U/L N 13-39 Egfr Non- 86.5 >60 Egfr 104.6 >60 2 Comp Metabolic Panel 03/29/2017 [facility] Sodium 137 mmol/L N 133-[address] [place] [address] [phone] Potassium 4.0 mmol/L N 3.5-5.0 Chloride 101 mmol/L N 101-111 Co2 Carbon Dioxide 29 mmol/L N 22-32 Anion Gap 7 mmol/L N 2-11 Glucose 131 mg/dL High 70-100 Blood Urea Nitrogen 15 mg/dL N 6-24 Creatinine 0.76 mg/dL N 0.51-0.95 BUN/Creatinine Ratio 19.7 N 8-20 Calcium 9.5 mg/dL N 8.6-10.3 Total Protein 7.0 g/dL N 6.4-8.9 Albumin 4.0 g/dL N 3.2-5.2 Globulin 3.0 g/dL N 2-4 Albumin/Globulin Ratio 1.3 N 1-3 Total Bilirubin 0.60 mg/dL N 0.2-1.0 Alkaline Phosphatase 52 U/L N 34-104 Alt 26 U/L N 7-52 Ast 21 U/L N 13-39 Egfr Non- 81.9 >60 Egfr 105.4 >60 3 CBC Auto 03/29/2017 [facility] White Blood 11.5 10^3/uL High 3.5-10.[address] [place] [address] [phone] Red Blood Count 4.45 10^6/uL N 4.0-5.4 Hemoglobin 12.2 g/dL N 12.0-16.0 Hematocrit 37 % N 35-47 Mean Corpuscular Volume 84 fL N 80-97 Mean Corpuscular Hemoglobin 28 pg N 27-31 Mean Corpuscular HGB Conc 33 g/dL N 31-36 Red Cell Distribution Width 16 % High 10.5-15 Platelet Count 333 10^3/uL N 150-450 Mean Platelet Volume 8 um3 N 7.4-10.4 Abs Neutrophils 7.2 10^3/uL N 1.5-7.7 Abs Lymphocytes 3.4 10^3/uL N 1.0-4.8 Abs Monocytes 0.6 10^3/uL N 0-0.8 Abs Eosinophils 0.3 10^3/uL N 0-0.6 Abs Basophils 0 10^3/uL N 0-0.2 Abs Nucleated RBC 0 10^3/uL Granulocyte % 62.4 % N 38-83 Lymphocyte % 29.5 % N 25-47 Monocyte % 5.4 % N 1-9 Eosinophil % 2.5 % N 0-6 Basophil % 0.2 % N 0-2 Nucleated Red Blood Cells % 0 Laboratory test 03/29/2017 [facility] Erythrocyte Sed 49 mm/Hr High 0-[address] [place] [address] [phone] C Reactive Protein 25.01 mg/L High < 5.00 4 Ssa/SSB Abs Igg 12/23/2016 [facility] SS-A/Ro Antibody <0.2 U N [address] [place] [address] [phone] SS-B/La Antibody <0.2 U N 6 CK Isoenzymes 12/23/2016 [facility] Creatine Kinase 57 U/L N 38 - [address] [place] [address] [phone] CK Isoenzyme Elec, Specimen See Comment N 7 CBC Auto Diff 12/23/2016 [facility] White Blood 9.6 10^3/uL N 3.5-10.[address] [place] [address] [phone] Red Blood Count 4.49 10^6/uL N 4.0-5.4 Hemoglobin 12.4 g/dL N 12.0-16.0 Hematocrit 39 % N 35-47 Mean Corpuscular Volume 86 fL N 80-97 Mean Corpuscular Hemoglobin 28 pg N 27-31 Mean Corpuscular HGB Conc 32 g/dL N 31-36 Red Cell Distribution Width 15 % N 10.5-15 Platelet Count 325 10^3/uL N 150-450 Mean Platelet Volume 8 um3 N 7.4-10.4 Abs Neutrophils 6.6 10^3/uL N 1.5-7.7 Abs Lymphocytes 2.3 10^3/uL N 1.0-4.8 Abs Monocytes 0.5 10^3/uL N 0-0.8 Abs Eosinophils 0.2 10^3/uL N 0-0.6 Abs Basophils 0 10^3/uL N 0-0.2 Abs Nucleated RBC 0 10^3/uL N Granulocyte % 68.5 % N 38-83 Lymphocyte % 24.0 % Low 25-47 Monocyte % 5.0 % N 1-9 Eosinophil % 2.1 % N 0-6 Basophil % 0.4 % N 0-2 Nucleated Red Blood Cells % 0 N Laboratory 12/23/2016 [facility] Aso 800 Abnormal <[address] (Antistreptolysin IU/mL Iu/[place] [address] O) Titer IU/mL [phone] Vitamin D 12/23/2016 [facility] Vitamin D, 1,25 83 Abnormal 18 -78 9 1,[address] Dihydroxy pg/mL Vitamin D,2 [place] [address] [phone] Vitamin B6 12/23/2016 [facility] Pyridoxal 2 g/L Abnormal 5- [address] 5-Phosphate [place], [place] [id number] [phone] Pyridoxic Acid 4 g/L N 3-30 11 Laboratory test 12/23/2016 [facility] Erythrocyte Sed 57 mm/Hr High 0-[address] [place], [place] [address] [phone] C Reactive Protein 44.16 mg/L High < 5.00 12 Vitamin B12 1441 pg/mL High 180-914 13 Hla B27 12/23/2016 [facility] Hla B27 Negative N [address] [place], [place] [address] [phone] Hla B27 Interp See Comment N 15 Laboratory test 12/23/2016 [facility] Rheumatoid Factor <15 IU/ mL N <15 [address] [place], [place] [address] [phone] Connective Tissue 12/23/2016 [facility] Anti-Nuclear 0.3 U N [address] [place] [address] [phone] Cyclic Citrullinated Peptide <15.6 U N 18 Interpretation See Comment N 19 Laboratory 10/17/2013 [facility] Urine Negative N Negative [address] [place], [place] [address] [phone] CBC No Diff 10/15/2013 [facility] White Blood 11.2 10^3/uL High 4.8-10.[address] [place] [address] [phone] Red Blood Count 4.27 10^6/uL N 4.0-5.4 Hemoglobin 11.9 g/dL Low 12.0-16.0 Hematocrit 35 % N 35-47 Mean Corpuscular Volume 82 fL N 80-97 Mean Corpuscular Hemoglobin 28 pg N 27-31 Mean Corpuscular HGB Conc 34 g/dL N 31-36 Red Cell Distribution Width 16 % High 10.5-15 Platelet Count 274 10^3/uL N 150-450 Mean Platelet Volume 8 um3 N 7.4-10.4 Basic Metabolic Panel 10/15/2013 [facility] Sodium 134 mmol/L N 133-145 [address] [place] [address] [phone] Potassium 3.9 mmol/L N 3.7-5.6 Chloride 101 mmol/L N 101-111 Co2 Carbon Dioxide 24 mmol/L N 22-32 Anion Gap 9 mmol/L N 2-11 Glucose 137 mg/dL High 70-100 Blood Urea Nitrogen 13 mg/dL N 6-24 Creatinine 0.64 mg/dL N 0.51-0.95 BUN/Creatinine Ratio 20.3 High 8-20 Calcium 9.6 mg/dL N 8.6-10.3 Egfr Non- 101.3 N >60 Egfr 130.2 N >60 22 Type & Screen 10/15/2013 [facility] Patient Blood Type A Positive N [address] [place] [address] [phone] Antibody Screen NEGATIVE N 1 Because ethnic data is not always readily available, this report includes an eGFR for both -Americans and non- Americans. The National Kidney Disease Education Program (NKDEP) does not endorse the use of the MDRD equation for patients that are not between the ages of 18 and 70, are , have extremes of body size, muscle mass, or nutritional status, or are non- or non-. According to the National Kidney Foundation, irrespective of diagnosis, the stage of the disease is based on the level of kidney function: Stage Description GFR(mL/min/1.73 m(2)) 1 Kidney damage with normal or decreased GFR 90 2 Kidney damage with mild decrease in GFR 60-89 3 Moderate decrease in GFR 30-59 4 Severe decrease in GFR 15-29 5 Kidney failure <15 (or dialysis) 2 Because ethnic data is not always readily available, this report includes an eGFR for both -Americans and non- Americans. The National Kidney Disease Education Program (NKDEP) does not endorse the use of the MDRD equation for patients that are not between the ages of 18 and 70, are , have extremes of body size, muscle mass, or nutritional status, or are non- or non-. According to the National Kidney Foundation, irrespective of diagnosis, the stage of the disease is based on the level of kidney function: Stage Description GFR(mL/min/1.73 m(2)) 1 Kidney damage with normal or decreased GFR 90 2 Kidney damage with mild decrease in GFR 60-89 3 Moderate decrease in GFR 30-59 4 Severe decrease in GFR 15-29 5 Kidney failure <15 (or dialysis) 3 Because ethnic data is not always readily available, this report includes an eGFR for both -Americans and non- Americans. The National Kidney Disease Education Program (NKDEP) does not endorse the use of the MDRD equation for patients that are not between the ages of 18 and 70, are , have extremes of body size, muscle mass, or nutritional status, or are non- or non-. According to the National Kidney Foundation, irrespective of diagnosis, the stage of the disease is based on the level of kidney function: Stage Description GFR(mL/min/1.73 m(2)) 1 Kidney damage with normal or decreased GFR 90 2 Kidney damage with mild decrease in GFR 60-89 3 Moderate decrease in GFR 30-59 4 Severe decrease in GFR 15-29 5 Kidney failure <15 (or dialysis) 4 Acute inflammation: >10.00 5 REFERENCE VALUE <1.0 (Negative) 6 REFERENCE VALUE <1.0 (Negative) Test Performed by: [facility] [place] [address] 7 RESULT: If CK result is <100, isoenzyme will not be performed. Test Performed by: [facility] [place] [address] 8 Normal values may vary with age, season and geographic area. Titers above upper limits may be indicative of infection, however only a two dilution rise in titer is required to be considered significant. ASO titer will usually rise above upper limits within one week of exposure, increase to peak levels at 3-5 weeks and return to baseline level at 6-12 twelve months. 9 ADDITIONAL INFORMATION This test was developed and its performance characteristics determined by [facility] in a manner consistent with CLIA requirements. This test has not been cleared or approved by the U.S. Food and Drug Administration. Test Performed by: [facility] - [address] [address] 10 ADDITIONAL INFORMATION This test was developed and its performance characteristics determined by [facility] in a manner consistent with CLIA requirements. This test has not been cleared or approved by the U.S. Food and Drug Administration. 11 ADDITIONAL INFORMATION This test was developed and its performance characteristics determined by [facility] in a manner consistent with CLIA requirements. This test has not been cleared or approved by the U.S. Food and Drug Administration. Test Performed by: [facility] [place] [address] 12 Acute inflammation: >10.00 13 Normal Range 180 to 914 Indeterminate Range 145 to 180 Deficient Range <145 14 REFERENCE VALUE Not Applicable 15 RESULT: HLA-B27 antigen was not detected. ADDITIONAL INFORMATION Method: Flow Cytometry Performing Laboratory CLIA# [id number] Test Performed by: [facility] - [address] [address] 16 Test Performed by: [facility] - [address] [address] 17 REFERENCE VALUE <=1.0 (Negative) 18 REFERENCE VALUE <20.0 (Negative) 19 Tests for antibodies to dsDNA and FELIBERTO antigens are not performed automatically unless the TONY result is > or= 3.0 U. Studies performed at [facility] indicate that positive TONY results <3.0 U are rarely accompanied by positive second order tests. Test Performed by: [facility] - [address] [address] 20 If is still suspected, please repeat test after 48 to 72 hours. This test detects intact HCG only and is indicated for the early detection of . 21 AA 10/17/13 22 Because ethnic data is not always readily available, this report includes an eGFR for both -Americans and non- Americans. The National Kidney Disease Education Program (NKDEP) does not endorse the use of the MDRD equation for patients that are not between the ages of 18 and 70, are , have extremes of body size, muscle mass, or nutritional status, or are non- or non-. According to the National Kidney Foundation, irrespective of diagnosis, the stage of the disease is based on the level of kidney function: Stage Description GFR(mL/min/1.73 m(2)) 1 Kidney damage with normal or decreased GFR 90 2 Kidney damage with mild decrease in GFR 60-89 3 Moderate decrease in GFR 30-59 4 Severe decrease in GFR 15-29 5 Kidney failure <15 (or dialysis) Procedures Date Code Description Status 10/17/2013 84334 Lowry/Facet/Foraminotomy;Ea Addl Segment; Cerv, Thora, Or Completed Lumbar 10/17/2013 26542 Lowry/Facet/Foraminotomy;Vertebral Segment; Lumbar Completed Encounters Type Date Location Provider Dx Diagnosis Office Visit 09/13/2018 Rheumatology Xochitl Cosby 1:[facility] psoriasis, unspecified Z79.899 Other terminal system operator (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 psoriasis, unspecified Z79.899 Other terminal system operator (current) drug therapy G62.9 Polyneuropathy, unspecified M48.00 Spinal stenosis, site unspecified Z23 Encounter for immunization Office Visit 06/27/2017 Rheumatology [facility] 1:00p [facility] M.D. psoriasis, unspecified Z79.899 Other half-way (current) drug therapy G62.9 Polyneuropathy, unspecified M50.30 Other cervical disc degeneration, unsp cervical region Office Visit 03/29/2017 [facility]umat[facility] 3:00p [facility] M.D. psoriasis, unspecified Z79.899 Other terminal system operator (current) drug therapy G62.9 Polyneuropathy, unspecified M50.30 Other cervical disc degeneration, unsp cervical region Z23 Encounter for immunization Office Visit 01/27/2017 Rheumatology [facility] 12:00p [facility] M.D. psoriasis, unspecified Z79.899 Other terminal system operator (current) drug therapy G62.9 Polyneuropathy, unspecified R68.2 Dry mouth, unspecified M50.30 Other cervical disc degeneration, unsp cervical region M77.01 Medial epicondylitis, right elbow Office Visit 12/23/2016 10:00a Rheumatology [facility] Valero Psoriasis, [facility] M.D. 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 at [facility]11/01/2018 - Bonifacio Wood M.D.L40.50 Arthropathic psoriasis, unspecifiedNew Medication:Enbrel Sureclick 50 mg/ml - inject subcutaneously 50mg every weekComments:Please stop Joleen at Dr. Montelongo's office as we are trying to get Enbrel approvedFollow up:Follow up in 2 or 3 months or sooner if tzedwwN12.899 Other half-way (current) drug qozbussE41.9 Polyneuropathy, doapiqptydtP31.00 Spinal stenosis, site unspecified
[2018-11-13 17:51] VITALS: BP 138/92
--- NOTE | 2018-11-13 18:47 | UC ---
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 Ochoa prior to pain." -she has psoriatic arthirist. had manipulation of both shoulders done last week. pain started after that -she gets oxy 5mgs QID from him. she is not looking for pain meds just wants to make sure ers tatiana is ok -hard time w/ certain movements but able to get FROM, some slow. hard to pull up her pants. 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 rt hand dominant -has not called Dr ochoa. - History of Current Complaint Chief Complaint: UCUpperExtremity Stated Complaint: RT SHOULDER COMPLAINT Time Seen by Provider: 11/13/18 18:29 Hx Last Menstrual Period: merina Pain Intensity: 10 - Allergies/Home Medications Allergies/Adverse Reactions: Allergies Allergy/AdvReac Type Severity Reaction Status Date / Time eletriptan Allergy Intermediate See Comment Verified 11/13/18 17:57 benzonatate Allergy Vomiting Verified 11/13/18 17:57 clindamycin Allergy Diarrhea Verified 11/13/18 17:57 Iodine and Iodide Containing Allergy Rash Verified 11/13/18 18:00 Produc latex Allergy Difficulty Verified 11/13/18 17:55 Breathing MS Iodinated Diagnostic Allergy Rash Verified 11/13/18 17:51 Agents [Iodinated Diagnostic Agents] Sulfa (Sulfonamide Allergy See Comment Verified 11/13/18 17:55 Antibiotics) oxycodone AdvReac Intermediate See Comment Verified 11/13/18 18:00 sumatriptan [From Imitrex] AdvReac Intermediate See Comment Verified 11/13/18 17 :59 citalopram [From Celexa] AdvReac See Comment Verified 11/13/18 17:59 PMH/Surg Hx/FS Hx/Imm Hx Previously Healthy: Yes - psoriatic arthritis - Surgical History Surgical History: Yes Surgery Procedure, Year, and Place: L3-L5 Laminectomy, 10/17/13, [facility] [place]; Appendectomy , , [facility] [place] - Family History Known Family History: Positive: Diabetes - Social History Alcohol Use: Rare Alcohol Amount: 6 TIMES A YEAR Substance Use Type: None Smoking Status (MU): Never Smoked Tobacco - Immunization History Most Recent Influenza Vaccination: December 2016 Most Recent Tetanus Shot: unk Most Recent Pneumonia Vaccination: unk Review of Systems All Other Systems Reviewed And Are Negative: Yes Constitutional: Positive: Negative Skin: Positive: Negative Eyes: Positive: Negative ENT: Positive: Negative Respiratory: Positive: Negative Cardiovascular: Positive: Negative Gastrointestinal: Positive: Negative Motor: Positive: Decreased ROM Neurovascular: Positive: Negative Musculoskeletal: Positive: Decreased ROM Neurological: Positive: Negative Psychological: Positive: Negative Is Patient Immunocompromised?: No Physical Exam Triage Information Reviewed: Yes Appearance: Well-Appearing, No Pain Distress, Well-Nourished - very pleasant Vital Signs: Initial Vital Signs Temp 97.6 F 11/13/18 17:47 Pulse 74 11/13/18 17:47 Resp 16 11/13/18 17:47 BP 138/92 11/13/18 17:47 Pulse Ox 100 11/13/18 17:47 Vital Signs Reviewed: Yes Eye Exam: Normal ENT Exam: Normal Neck exam: Normal Respiratory Exam: Normal Cardiovascular Exam: Normal Musculoskeletal: Positive: ROM Limited @ - right shoulder - able to get FROM in all planes but slower with internal and external roattion. soem weakness d/t pain. CR brisk. sensation intact. Neurological Exam: Normal Psychological Exam: Normal Skin Exam: Normal Shoulder Course/Dx - Course Course Of Treatment: -likely rt shoulder injusry s/p manipulation on 11/[address]choa's offie. recommend rest, ice and cont aleve. she agrees to call Dr Ochoa in AM for f/u. likely irrittaion/tendonitis. - Differential Dx/Diagnosis Differential Diagnosis/HQI/PQRI: Contusion, Sprain, Strain Provider Diagnosis: Right shoulder pain Discharge - Sign-Out/Discharge Documenting (check all that apply): Patient Departure All imaging exams completed and their final reports reviewed: No Studies - Discharge Plan Condition: Stable Disposition: HOME Patient Education Materials: Shoulder Pain (ED) Referrals: Mamta Knox MD [Primary Care Provider] - Additional Instructions: Please call Dr Ochoa for follow up. Ice and rest are important. - Billing Disposition and Condition Condition: STABLE Disposition: Home
== END 2018-11-13 18:55 | disposition home or self-care (01) ==
LOC: UCCORT 17:24
DX: M25.511 Pain in right shoulder (principal)
CPT/HCPCS: 99211; G0463

== ENCOUNTER 2021-05-03 16:15 | Inpatient (IN) ==
[2021-05-03 18:19] LABS: ABS Monocytes 0.2 10^3/ul (0-0.8); ABS Neutrophils 12.5 10^3/ul (1.5-7.7); Eosinophil % 0.3 %; Hematocrit 33 % (35-47); Hemoglobin 10.8 g/dL (12.0-16.0); Lymphocyte % 7.2 %; Mean Corpuscular HGB Conc 33 g/dL (31-36); Mean Corpuscular Hemoglobin 28 pg (27-31); Mean Corpuscular Volume 84 fL (80-97); Platelet Count 210 10^3/uL (150-450); Red Blood Count 3.86 10^6 /uL (3.70-4.87); Red Cell Distribution Width 19 % (10-15); White Blood Count 13.8 10^3/uL (3.5-10.8)
[2021-05-03 18:35] LABS: Albumin 3.4 g/dL (3.2-5.2); Albumin/Globulin Ratio 0.9 (1-3); C Reactive Protein 346.61 mg/L (<8.01); Potassium 3.5 mmol/L (3.5-5.0); Total Bilirubin 1.1 mg/dL (0.2-1.0); Total Protein 7.4 g/dL (6.4-8.9); eGFR CKD-EPI 91.1 (>60)
[2021-05-03 20:27] LABS: Erythrocyte Sed Rate 119 mm/Hr (0-29)
[2021-05-03] MEDS ORDERED: Vancomycin 1,500 MG in NS 0.9% 250 ml 250 ML IVPB ONE (20:59)
[2021-05-03] MEDS ORDERED: cefTRIAXone 1 gm/50 mL NS BAG 1 GM/50 ML BAG IV ONE (21:04)
[2021-05-03] MEDS ORDERED: Ondansetron 4 mg VIAL 2 MG/ML 2 ml VIAL IV PRN (21:55)
[2021-05-03] MEDS ORDERED: Dextrose 50% Syringe 50 ml 25 GM/50 ML SYRINGE IV PUSH PRN (22:00)
[2021-05-03] MEDS ORDERED: Vancomycin 2,000 MG in NS 0.9% 250 ml 250 ML IVPB ONE (22:09)
[2021-05-03] MEDS: Enoxaparin 40 MG/0.4 ML SYR SUBCUT SCH (22:56)
[2021-05-03] MEDS: NS 0.9% 1000 ml BAG 1,000 ML IV SCH (22:57)
[2021-05-03] MEDS ORDERED: Vancomycin per Pharmacy 1 EA NOTE FOLLOW UP SCH (23:00)
[2021-05-03] MEDS ORDERED: Vancomycin 2,000 MG in NS 0.9% 500 ml BAG 500 ML IVPB ONE (23:00)
[2021-05-04 06:32] LABS: ABS Lymphocytes 1.3 10^3/ul (1.0-4.8); ABS Monocytes 0.2 10^3/ul (0-0.8); ABS Neutrophils 11.7 10^3/ul (1.5-7.7); Eosinophil % 0.3 %; Hematocrit 34 % (35-47); Hemoglobin 11.1 g/dL (12.0-16.0); Lymphocyte % 9.9 %; Mean Corpuscular HGB Conc 33 g/dL (31-36); Mean Corpuscular Hemoglobin 28 pg (27-31); Mean Corpuscular Volume 83 fL (80-97); Mean Platelet Volume 8.5 fL (7.4-10.4); Platelet Count 216 10^3/uL (150-450); Red Blood Count 4.03 10^6 /uL (3.70-4.87); Red Cell Distribution Width 19 % (10-15); White Blood Count 13.3 10^3/uL (3.5-10.8)
[2021-05-04 06:54] LABS: Calcium 8.9 mg/dL (8.6-10.3); Potassium 3.4 mmol/L (3.5-5.0); eGFR CKD-EPI 87.1 (>60)
[2021-05-04 07:38] LABS: Magnesium 1.7 mg/dL (1.9-2.7)
[2021-05-04] MEDS: Potassium Chlor 20 meq TAB.ER PO SCH (08:56)
[2021-05-04] MEDS ORDERED: BISOPROLOL HYDROCHLOROTHIAZIDE PO SCH (09:00)
[2021-05-04] MEDS ORDERED: APREMILAST 30 MG PO SCH (09:00)
[2021-05-04] MEDS: Albuterol HFA INHALER 8 gm MDI INH PRN (09:01)
[2021-05-04] MEDS: Clotrimazole 1% CREAM 30 gm TOPICAL SCH ×2 (09:10→22:08)
[2021-05-04] MEDS: NS 0.9% 1000 ml BAG 1,000 ML IV SCH (09:19)
[2021-05-04] MEDS: Vancomycin 2,000 MG in NS 0.9% 500 ml BAG 500 ML IVPB SCH ×2 (09:21→21:55)
[2021-05-04] MEDS ORDERED: Cefepime 1 GM in Dextrose 1 GM/50 ML BAG IV SCH ×2 (10:00→11:00)
[2021-05-04] MEDS: ALPHA LIPOIC ACID 600 MG PO SCH (10:22)
[2021-05-04] MEDS: Cefepime 1 GM in Dextrose 1 GM/50 ML BAG IV SCH (12:51)
[2021-05-04] MEDS: Mometasone 220 MCG MDI INH SCH (19:44)
[2021-05-04] MEDS ORDERED: cefTRIAXone 1 gm/50 mL NS BAG 1 GM/50 ML BAG IVPB SCH (20:00)
[2021-05-04] MEDS: Enoxaparin 40 MG/0.4 ML SYR SUBCUT SCH (21:48)
[2021-05-05] MEDS: Cefepime 1 GM in Dextrose 1 GM/50 ML BAG IV SCH ×2 (00:42→14:03)
[2021-05-05] MEDS: NS 0.9% 1000 ml BAG 1,000 ML IV SCH (00:43)
[2021-05-05 05:10] LABS: Albumin/Globulin Ratio 0.8 (1-3); Calcium 8.7 mg/dL (8.6-10.3); Globulin 3.8 g/dL (2-4); Magnesium 1.7 mg/dL (1.9-2.7); Potassium 3.6 mmol/L (3.5-5.0); Total Bilirubin 0.9 mg/dL (0.2-1.0); Total Protein 6.8 g/dL (6.4-8.9); eGFR CKD-EPI 107.2 (>60)
[2021-05-05 06:15] LABS: ABS Eosinophils 0.1 10^3/ul (0-0.6); ABS Lymphocytes 1.7 10^3/ul (1.0-4.8); ABS Monocytes 0.3 10^3/ul (0-0.8); ABS Neutrophils 9.3 10^3/ul (1.5-7.7); Eosinophil % 1.3 %; Hematocrit 31 % (35-47); Hemoglobin 10.1 g/dL (12.0-16.0); Lymphocyte % 14.9 %; Mean Corpuscular HGB Conc 33 g/dL (31-36); Mean Corpuscular Hemoglobin 27 pg (27-31); Mean Corpuscular Volume 84 fL (80-97); Mean Platelet Volume 8.6 fL (7.4-10.4); Platelet Count 243 10^3/uL (150-450); Red Blood Count 3.72 10^6 /uL (3.70-4.87); Red Cell Distribution Width 18 % (10-15); White Blood Count 11.5 10^3/uL (3.5-10.8)
[2021-05-05] MEDS ORDERED: Magnesium Sulfate IV 3 GM in NS 0.9% 100 ml BAG 100 ML IVPB ONE (07:30)
[2021-05-05] MEDS ORDERED: Vancomycin Trough Check NOTE FOLLOW UP ONE (08:30)
[2021-05-05] MEDS ORDERED: Flu vaccine *QUAD* 2021-22* 0.5 ML SYRINGE IM ONE (09:00)
[2021-05-05] MEDS: ALPHA LIPOIC ACID 600 MG PO SCH (09:08)
[2021-05-05] MEDS: Clotrimazole 1% CREAM 30 gm TOPICAL SCH ×2 (09:11→20:14)
[2021-05-05] MEDS: Potassium Chlor 20 meq TAB.ER PO SCH (09:19)
[2021-05-05] MEDS: Vancomycin 2,000 MG in NS 0.9% 500 ml BAG 500 ML IVPB SCH ×2 (10:56→21:50)
[2021-05-05] MEDS ORDERED: Furosemide 40 mg/4 ml IV VIAL IV ONE (14:10)
[2021-05-05] MEDS: Enoxaparin 40 MG/0.4 ML SYR SUBCUT SCH (21:50)
[2021-05-05] MEDS: Mometasone 220 MCG MDI INH SCH (21:56)
[2021-05-06] MEDS: Cefepime 1 GM in Dextrose 1 GM/50 ML BAG IV SCH (01:07)
[2021-05-06] MEDS: NS 0.9% 1000 ml BAG 1,000 ML IV SCH ×2 (02:06→09:53)
[2021-05-06 06:01] LABS: ABS Eosinophils 0.2 10^3/ul (0-0.6); ABS Lymphocytes 1.6 10^3/ul (1.0-4.8); ABS Monocytes 0.6 10^3/ul (0-0.8); ABS Neutrophils 6.2 10^3/ul (1.5-7.7); Eosinophil % 2.6 %; Hematocrit 31 % (35-47); Hemoglobin 10.2 g/dL (12.0-16.0); Lymphocyte % 18.8 %; Mean Corpuscular HGB Conc 33 g/dL (31-36); Mean Corpuscular Hemoglobin 28 pg (27-31); Mean Corpuscular Volume 84 fL (80-97); Mean Platelet Volume 8.1 fL (7.4-10.4); Nucleated Red Blood Cells % 0.1; Platelet Count 270 10^3/uL (150-450); Red Blood Count 3.66 10^6 /uL (3.70-4.87); Red Cell Distribution Width 19 % (10-15); White Blood Count 8.7 10^3/uL (3.5-10.8)
[2021-05-06 06:18] LABS: Albumin/Globulin Ratio 0.8 (1-3); Calcium 8.4 mg/dL (8.6-10.3); Globulin 3.7 g/dL (2-4); Total Bilirubin 0.7 mg/dL (0.2-1.0); Total Protein 6.7 g/dL (6.4-8.9)
[2021-05-06] MEDS ORDERED: Insulin GLARGINE 100 un/ml 10 ml VIAL SUBCUT SCH (09:00)
[2021-05-06] MEDS ORDERED: Furosemide 40 mg/4 ml IV VIAL IV ONE (09:24)
[2021-05-06] MEDS: Vancomycin 2,000 MG in NS 0.9% 500 ml BAG 500 ML IVPB SCH (09:36)
[2021-05-06] MEDS: Oral Rinse (Biotene)(NF) 237 ML or 473 ML ORAL RINSE BTL MT PRN ×2 (09:47→21:48)
[2021-05-06] MEDS: Potassium Chlor 20 meq TAB.ER PO SCH (09:58)
[2021-05-06] MEDS: ALPHA LIPOIC ACID 600 MG PO SCH (10:30)
[2021-05-06] MEDS: ceFAZolin 1 GM ADVAN 1 GM in NS 0.9% 50 ML 50 ML IVPB SCH ×2 (10:37→18:00)
[2021-05-06] MEDS: Clotrimazole 1% CREAM 30 gm TOPICAL SCH ×2 (10:43→21:50)
[2021-05-06] MEDS: Mometasone 220 MCG MDI INH SCH (19:01)
[2021-05-07] MEDS: NS 0.9% 1000 ml BAG 1,000 ML IV SCH ×3 (00:54→19:45)
[2021-05-07] MEDS: Enoxaparin 40 MG/0.4 ML SYR SUBCUT SCH ×2 (00:59→20:47)
[2021-05-07] MEDS: ceFAZolin 1 GM ADVAN 1 GM in NS 0.9% 50 ML 50 ML IVPB SCH ×3 (02:09→18:05)
[2021-05-07 06:08] LABS: Hematocrit 31 % (35-47); Hemoglobin 10.3 g/dL (12.0-16.0); Mean Corpuscular HGB Conc 34 g/dL (31-36); Mean Corpuscular Hemoglobin 28 pg (27-31); Mean Corpuscular Volume 83 fL (80-97); Mean Platelet Volume 7.9 fL (7.4-10.4); Platelet Count 302 10^3/uL (150-450); Red Blood Count 3.67 10^6 /uL (3.70-4.87); Red Cell Distribution Width 19 % (10-15); White Blood Count 7.2 10^3/uL (3.5-10.8)
[2021-05-07 06:25] LABS: C Reactive Protein 153.75 mg/L (<8.01); Calcium 8.2 mg/dL (8.6-10.3); Potassium 3.5 mmol/L (3.5-5.0); eGFR CKD-EPI 112.6 (>60)
[2021-05-07 08:27] LABS: ABS Eosinophils 0.2 10^3/ul (0-0.6); ABS Lymphocytes 1.7 10^3/ul (1.0-4.8); ABS Monocytes 0.5 10^3/ul (0-0.8); ABS Neutrophils 4.8 10^3/ul (1.5-7.7); Eosinophil % 2.4 %; Lymphocyte % 23.7 %
[2021-05-07] MEDS ORDERED: Insulin GLARGINE 100 un/ml 10 ml VIAL SUBCUT SCH (09:00)
[2021-05-07] MEDS: Potassium Chlor 20 meq TAB.ER PO SCH (09:23)
[2021-05-07] MEDS: Clotrimazole 1% CREAM 30 gm TOPICAL SCH ×2 (09:24→20:50)
[2021-05-07] MEDS: ALPHA LIPOIC ACID 600 MG PO SCH (09:24)
[2021-05-07 10:58] LABS: TSH Ultra Thyroid Stim Horm 6.49 mcIU/mL (0.34-5.60)
[2021-05-07] MEDS: Mometasone 220 MCG MDI INH SCH (20:08)
[2021-05-07] MEDS: Oral Rinse (Biotene)(NF) 237 ML or 473 ML ORAL RINSE BTL MT PRN (20:49)
[2021-05-08] MEDS: ceFAZolin 1 GM ADVAN 1 GM in NS 0.9% 50 ML 50 ML IVPB SCH ×3 (02:13→17:57)
[2021-05-08] MEDS: NS 0.9% 1000 ml BAG 1,000 ML IV SCH (04:26)
[2021-05-08 05:13] LABS: Hematocrit 30 % (35-47); Hemoglobin 10.1 g/dL (12.0-16.0); Mean Corpuscular HGB Conc 33 g/dL (31-36); Mean Corpuscular Hemoglobin 28 pg (27-31); Mean Corpuscular Volume 84 fL (80-97); Mean Platelet Volume 7.1 fL (7.4-10.4); Platelet Count 374 10^3/uL (150-450); Red Blood Count 3.63 10^6 /uL (3.70-4.87); Red Cell Distribution Width 19 % (10-15); White Blood Count 8.8 10^3/uL (3.5-10.8)
[2021-05-08 05:36] LABS: ABS Eosinophils 0.2 10^3/ul (0-0.6); ABS Lymphocytes 2.1 10^3/ul (1.0-4.8); ABS Monocytes 0.6 10^3/ul (0-0.8); ABS Neutrophils 5.9 10^3/ul (1.5-7.7); Eosinophil % 2.4 %; Lymphocyte % 23.9 %
[2021-05-08 05:40] LABS: Albumin 2.8 g/dL (3.2-5.2); Albumin/Globulin Ratio 0.8 (1-3); C Reactive Protein 131.08 mg/L (<8.01); Calcium 8.6 mg/dL (8.6-10.3); Globulin 3.7 g/dL (2-4); Total Bilirubin 0.5 mg/dL (0.2-1.0); Total Protein 6.5 g/dL (6.4-8.9); eGFR CKD-EPI 109.3 (>60)
[2021-05-08] MEDS ORDERED: Furosemide 20 mg/2 ml IV VIAL IV SLOW PU ONE (08:34)
[2021-05-08] MEDS: Insulin GLARGINE 100 un/ml 10 ml VIAL SUBCUT SCH (08:42)
[2021-05-08] MEDS: Clotrimazole 1% CREAM 30 gm TOPICAL SCH ×2 (08:49→22:03)
[2021-05-08] MEDS: Potassium Chlor 20 meq TAB.ER PO SCH (09:08)
[2021-05-08] MEDS: ALPHA LIPOIC ACID 600 MG PO SCH (09:12)
[2021-05-08] MEDS: Oral Rinse (Biotene)(NF) 237 ML or 473 ML ORAL RINSE BTL MT PRN (09:18)
[2021-05-08 10:42] LABS: Erythrocyte Sed Rate > 120 mm/Hr (0-29)
[2021-05-08 11:55] LABS: Free T4 1.23 ng/dL (0.61-1.12)
[2021-05-08] MEDS: Mometasone 220 MCG MDI INH SCH (19:09)
[2021-05-08] MEDS: Albuterol HFA INHALER 8 gm MDI INH PRN (19:11)
[2021-05-08] MEDS: Enoxaparin 40 MG/0.4 ML SYR SUBCUT SCH (22:03)
[2021-05-09] MEDS: ceFAZolin 1 GM ADVAN 1 GM in NS 0.9% 50 ML 50 ML IVPB SCH ×3 (02:43→17:56)
[2021-05-09 05:57] LABS: Hematocrit 31 % (35-47); Hemoglobin 10.2 g/dL (12.0-16.0); Mean Corpuscular HGB Conc 33 g/dL (31-36); Mean Corpuscular Hemoglobin 28 pg (27-31); Mean Corpuscular Volume 84 fL (80-97); Mean Platelet Volume 7.5 fL (7.4-10.4); Platelet Count 439 10^3/uL (150-450); Red Cell Distribution Width 19 % (10-15); White Blood Count 8.5 10^3/uL (3.5-10.8)
[2021-05-09 06:00] LABS: ABS Eosinophils 0.2 10^3/ul (0-0.6); ABS Lymphocytes 1.7 10^3/ul (1.0-4.8); ABS Monocytes 0.5 10^3/ul (0-0.8); ABS Neutrophils 6.1 10^3/ul (1.5-7.7); Eosinophil % 1.9 %; Lymphocyte % 20.6 %
[2021-05-09 06:13] LABS: Albumin 2.9 g/dL (3.2-5.2); Albumin/Globulin Ratio 0.7 (1-3); C Reactive Protein 123.2 mg/L (<8.01); Calcium 8.7 mg/dL (8.6-10.3); Globulin 4.1 g/dL (2-4); Total Bilirubin 0.5 mg/dL (0.2-1.0); eGFR CKD-EPI 105.3 (>60)
[2021-05-09] MEDS: Potassium Chlor 20 meq TAB.ER PO SCH (09:00)
[2021-05-09] MEDS: Insulin GLARGINE 100 un/ml 10 ml VIAL SUBCUT SCH (09:01)
[2021-05-09] MEDS: Clotrimazole 1% CREAM 30 gm TOPICAL SCH ×2 (09:02→20:25)
[2021-05-09] MEDS: ALPHA LIPOIC ACID 600 MG PO SCH (09:05)
[2021-05-09] MEDS ORDERED: Furosemide 20 mg/2 ml IV VIAL IV ONE (13:21)
[2021-05-09] MEDS: Albuterol HFA INHALER 8 gm MDI INH PRN ×2 (14:51→20:14)
[2021-05-09] MEDS: Enoxaparin 40 MG/0.4 ML SYR SUBCUT SCH (20:21)
[2021-05-09] MEDS: Mometasone 220 MCG MDI INH SCH (20:43)
[2021-05-09] MEDS ORDERED: Insulin GLARGINE 100 un/ml 10 ml VIAL SUBCUT SCH (21:00)
[2021-05-10] MEDS: ceFAZolin 1 GM ADVAN 1 GM in NS 0.9% 50 ML 50 ML IVPB SCH ×2 (02:23→09:07)
[2021-05-10 05:57] LABS: Hematocrit 30 % (35-47); Hemoglobin 10.2 g/dL (12.0-16.0); Mean Corpuscular HGB Conc 34 g/dL (31-36); Mean Corpuscular Hemoglobin 29 pg (27-31); Mean Corpuscular Volume 83 fL (80-97); Mean Platelet Volume 7.4 fL (7.4-10.4); Platelet Count 479 10^3/uL (150-450); Red Blood Count 3.58 10^6 /uL (3.70-4.87); Red Cell Distribution Width 19 % (10-15)
[2021-05-10 06:14] LABS: Calcium 8.9 mg/dL (8.6-10.3); eGFR CKD-EPI 98.5 (>60)
[2021-05-10] MEDS: Insulin GLARGINE 100 un/ml 10 ml VIAL SUBCUT SCH (08:58)
[2021-05-10] MEDS: Potassium Chlor 20 meq TAB.ER PO SCH (09:00)
[2021-05-10] MEDS ORDERED: METHOTREXATE 2.5 MG/ML PO SCH (09:00)
[2021-05-10] MEDS: ALPHA LIPOIC ACID 600 MG PO SCH (09:00)
[2021-05-10] MEDS: Clotrimazole 1% CREAM 30 gm TOPICAL SCH ×2 (09:06→23:12)
[2021-05-10] MEDS: Cefepime 2 GM in Dextrose 2 GM/50 ML BAG IV SCH (12:34)
[2021-05-10] MEDS ORDERED: Furosemide 20 mg/2 ml IV VIAL IV ONE (14:02)
[2021-05-10] MEDS ORDERED: Vancomycin 1,000 MG in NS 0.9% 250 ml 250 ML IVPB ONE (16:34)
[2021-05-10] MEDS ORDERED: Vancomycin per Pharmacy 1 EA NOTE FOLLOW UP SCH (17:00)
[2021-05-10] MEDS ORDERED: Vancomycin 2,000 MG in NS 0.9% 500 ml BAG 500 ML IVPB ONE (17:00)
[2021-05-10] MEDS: Mometasone 220 MCG MDI INH SCH (19:27)
[2021-05-10] MEDS ORDERED: Insulin GLARGINE 100 un/ml 10 ml VIAL SUBCUT SCH (21:00)
[2021-05-10] MEDS: Enoxaparin 40 MG/0.4 ML SYR SUBCUT SCH (22:00)
[2021-05-11] MEDS: Cefepime 2 GM in Dextrose 2 GM/50 ML BAG IV SCH ×2 (00:05→11:51)
[2021-05-11] MEDS: Vancomycin 2,000 MG in NS 0.9% 500 ml BAG 500 ML IVPB SCH ×2 (05:35→17:18)
[2021-05-11 05:40] LABS: Hematocrit 31 % (35-47); Hemoglobin 10.2 g/dL (12.0-16.0); Mean Corpuscular HGB Conc 33 g/dL (31-36); Mean Corpuscular Hemoglobin 28 pg (27-31); Mean Corpuscular Volume 83 fL (80-97); Mean Platelet Volume 7.1 fL (7.4-10.4); Platelet Count 498 10^3/uL (150-450); Red Cell Distribution Width 19 % (10-15); White Blood Count 9.6 10^3/uL (3.5-10.8)
[2021-05-11 07:37] LABS: Potassium 4.1 mmol/L (3.5-5.0); eGFR CKD-EPI 110.6 (>60)
[2021-05-11] MEDS ORDERED: Insulin GLARGINE 100 un/ml 10 ml VIAL SUBCUT SCH (09:00)
[2021-05-11] MEDS: Insulin GLARGINE 100 un/ml 10 ml VIAL SUBCUT SCH ×2 (09:12→22:02)
[2021-05-11] MEDS: Potassium Chlor 20 meq TAB.ER PO SCH (09:15)
[2021-05-11] MEDS: ALPHA LIPOIC ACID 600 MG PO SCH (09:15)
[2021-05-11] MEDS: Clotrimazole 1% CREAM 30 gm TOPICAL SCH ×2 (09:18→22:05)
[2021-05-11 11:55] LABS: C Reactive Protein 141.22 mg/L (<8.01)
[2021-05-11] MEDS ORDERED: Perflutren Lipid Microsphere 3 ML VIAL ONE (12:43)
[2021-05-11] MEDS: diPHENhydraMINE 25 mg TAB PO PRN (14:09)
[2021-05-11] MEDS: Mometasone 220 MCG MDI INH SCH (19:29)
[2021-05-11] MEDS: Enoxaparin 40 MG/0.4 ML SYR SUBCUT SCH (22:05)
[2021-05-11] MEDS: CALCIUM ACETATE TOPICAL SCH (22:10)
[2021-05-11] MEDS: ALUMINUM SULFATE TOPICAL SCH (22:10)
[2021-05-12] MEDS: Cefepime 2 GM in Dextrose 2 GM/50 ML BAG IV SCH ×2 (01:13→12:48)
[2021-05-12] MEDS ORDERED: Vancomycin Trough Check NOTE FOLLOW UP ONE (05:30)
[2021-05-12 06:14] LABS: Hematocrit 30 % (35-47); Hemoglobin 9.9 g/dL (12.0-16.0); Mean Corpuscular HGB Conc 34 g/dL (31-36); Mean Corpuscular Hemoglobin 28 pg (27-31); Mean Corpuscular Volume 83 fL (80-97); Mean Platelet Volume 7.4 fL (7.4-10.4); Platelet Count 516 10^3/uL (150-450); Red Blood Count 3.56 10^6 /uL (3.70-4.87); Red Cell Distribution Width 19 % (10-15); White Blood Count 9.5 10^3/uL (3.5-10.8)
[2021-05-12 06:35] LABS: Calcium 8.9 mg/dL (8.6-10.3); Magnesium 1.9 mg/dL (1.9-2.7); Potassium 4.2 mmol/L (3.5-5.0); eGFR CKD-EPI 110.2 (>60)
[2021-05-12] MEDS ORDERED: Magnesium Sulfate 2 gm BAG 2 GM/50 ML BAG IVPB ONE (07:09)
[2021-05-12] MEDS: Insulin GLARGINE 100 un/ml 10 ml VIAL SUBCUT SCH ×2 (08:02→21:22)
[2021-05-12] MEDS: ALUMINUM SULFATE TOPICAL SCH (09:28)
[2021-05-12] MEDS: CALCIUM ACETATE TOPICAL SCH (09:28)
[2021-05-12] MEDS: Vancomycin 2,000 MG in NS 0.9% 500 ml BAG 500 ML IVPB SCH (09:35)
[2021-05-12] MEDS: ALPHA LIPOIC ACID 600 MG PO SCH (09:38)
[2021-05-12] MEDS: Potassium Chlor 20 meq TAB.ER PO SCH (09:39)
[2021-05-12] MEDS: Clotrimazole 1% CREAM 30 gm TOPICAL SCH ×2 (09:42→20:37)
[2021-05-12] MEDS: Mometasone 220 MCG MDI INH SCH (19:46)
[2021-05-12] MEDS: Enoxaparin 40 MG/0.4 ML SYR SUBCUT SCH (20:34)
[2021-05-12] MEDS ORDERED: Vancomycin 1,750 MG in NS 0.9% 500 ml BAG 500 ML IVPB SCH (21:00)
[2021-05-12] MEDS ORDERED: ALUMINUM SULFATE TOPICAL SCH (22:00)
[2021-05-12] MEDS ORDERED: CALCIUM ACETATE TOPICAL SCH (22:00)
[2021-05-13] MEDS: Cefepime 2 GM in Dextrose 2 GM/50 ML BAG IV SCH ×3 (00:37→23:08)
[2021-05-13 05:51] LABS: ABS Basophils 0.1 10^3/ul (0-0.2); ABS Eosinophils 0.2 10^3/ul (0-0.6); ABS Lymphocytes 2.2 10^3/ul (1.0-4.8); ABS Monocytes 0.6 10^3/ul (0-0.8); ABS Neutrophils 5.9 10^3/ul (1.5-7.7); Eosinophil % 2.2 %; Hematocrit 30 % (35-47); Lymphocyte % 24.8 %; Mean Corpuscular HGB Conc 33 g/dL (31-36); Mean Corpuscular Hemoglobin 28 pg (27-31); Mean Corpuscular Volume 83 fL (80-97); Mean Platelet Volume 7.3 fL (7.4-10.4); Platelet Count 532 10^3/uL (150-450); Red Blood Count 3.59 10^6 /uL (3.70-4.87); Red Cell Distribution Width 18 % (10-15); White Blood Count 9.1 10^3/uL (3.5-10.8)
[2021-05-13 06:09] LABS: Calcium 8.8 mg/dL (8.6-10.3); Potassium 4.5 mmol/L (3.5-5.0); eGFR CKD-EPI 109.3 (>60)
[2021-05-13] MEDS: ALPHA LIPOIC ACID 600 MG PO SCH (08:30)
[2021-05-13] MEDS: Potassium Chlor 20 meq TAB.ER PO SCH (08:31)
[2021-05-13] MEDS: Insulin GLARGINE 100 un/ml 10 ml VIAL SUBCUT SCH ×2 (08:33→22:04)
[2021-05-13] MEDS: Clotrimazole 1% CREAM 30 gm TOPICAL SCH ×2 (08:43→21:21)
[2021-05-13] MEDS ORDERED: Vancomycin 1,000 MG in NS 0.9% 250 ml 250 ML IVPB ONE (11:23)
[2021-05-13] MEDS ORDERED: Vancomycin per Pharmacy 1 EA NOTE FOLLOW UP SCH (12:00)
[2021-05-13] MEDS ORDERED: Vancomycin 1,750 MG in NS 0.9% 500 ml BAG 500 ML IVPB ONE (12:00)
[2021-05-13] MEDS: Bacitracin OINTMENT TUBE TOPICAL SCH (14:35)
[2021-05-13] MEDS ORDERED: Vancomycin 1,750 MG in NS 0.9% 500 ml BAG 500 ML IVPB SCH (15:00)
[2021-05-13] MEDS: Albuterol HFA INHALER 8 gm MDI INH PRN (16:57)
[2021-05-13] MEDS: Mometasone 220 MCG MDI INH SCH (19:32)
[2021-05-13] MEDS: Enoxaparin 40 MG/0.4 ML SYR SUBCUT SCH (21:17)
[2021-05-14] MEDS: Bacitracin OINTMENT TUBE TOPICAL SCH ×3 (00:34→23:30)
[2021-05-14] MEDS: Vancomycin 1,750 MG in NS 0.9% 500 ml BAG 500 ML IVPB SCH ×2 (01:52→13:33)
[2021-05-14 06:02] LABS: Calcium 8.5 mg/dL (8.6-10.3); Magnesium 1.8 mg/dL (1.9-2.7); Potassium 3.9 mmol/L (3.5-5.0); eGFR CKD-EPI 109.7 (>60)
[2021-05-14] MEDS ORDERED: Magnesium Sulfate IV 3 GM in NS 0.9% 100 ml BAG 100 ML IVPB ONE (08:00)
[2021-05-14] MEDS ORDERED: NS 0.9% 100 ml BAG 100 ML ONE (08:07)
[2021-05-14 08:20] LABS: C Reactive Protein 97.26 mg/L (<8.01)
[2021-05-14] MEDS: Potassium Chlor 20 meq TAB.ER PO SCH (08:26)
[2021-05-14] MEDS: ALPHA LIPOIC ACID 600 MG PO SCH ×2 (08:30→22:56)
[2021-05-14] MEDS ORDERED: Vancomycin Trough Check NOTE FOLLOW UP ONE ×2 (08:30→12:30)
[2021-05-14] MEDS: Insulin GLARGINE 100 un/ml 10 ml VIAL SUBCUT SCH ×2 (08:53→22:46)
[2021-05-14] MEDS: Clotrimazole 1% CREAM 30 gm TOPICAL SCH ×2 (10:14→22:45)
[2021-05-14] MEDS: Cefepime 2 GM in Dextrose 2 GM/50 ML BAG IV SCH ×2 (10:55→22:56)
[2021-05-14] MEDS: Albuterol HFA INHALER 8 gm MDI INH PRN (19:44)
[2021-05-14] MEDS: Mometasone 220 MCG MDI INH SCH (19:44)
[2021-05-14] MEDS: Enoxaparin 40 MG/0.4 ML SYR SUBCUT SCH (22:44)
[2021-05-15] MEDS: Vancomycin 1,750 MG in NS 0.9% 500 ml BAG 500 ML IVPB SCH ×2 (01:46→12:57)
[2021-05-15 07:04] LABS: Hematocrit 30 % (35-47); Hemoglobin 9.9 g/dL (12.0-16.0); Mean Corpuscular HGB Conc 33 g/dL (31-36); Mean Corpuscular Hemoglobin 28 pg (27-31); Mean Corpuscular Volume 83 fL (80-97); Mean Platelet Volume 7.1 fL (7.4-10.4); Platelet Count 600 10^3/uL (150-450); Red Blood Count 3.59 10^6 /uL (3.70-4.87); Red Cell Distribution Width 18 % (10-15); White Blood Count 7.2 10^3/uL (3.5-10.8)
[2021-05-15 07:20] LABS: Calcium 8.9 mg/dL (8.6-10.3); Magnesium 1.9 mg/dL (1.9-2.7); Potassium 4.1 mmol/L (3.5-5.0); eGFR CKD-EPI 111.6 (>60)
[2021-05-15] MEDS ORDERED: Magnesium Sulfate 2 gm BAG 2 GM/50 ML BAG IVPB ONE (07:33)
[2021-05-15] MEDS: Insulin GLARGINE 100 un/ml 10 ml VIAL SUBCUT SCH ×2 (09:15→22:16)
[2021-05-15] MEDS: Potassium Chlor 20 meq TAB.ER PO SCH (09:17)
[2021-05-15] MEDS: Clotrimazole 1% CREAM 30 gm TOPICAL SCH ×2 (09:32→21:16)
[2021-05-15] MEDS: Bacitracin OINTMENT TUBE TOPICAL SCH ×2 (09:33→21:16)
[2021-05-15] MEDS: Cefepime 2 GM in Dextrose 2 GM/50 ML BAG IV SCH ×2 (10:23→22:16)
[2021-05-15] MEDS: Mometasone 220 MCG MDI INH SCH (19:48)
[2021-05-15] MEDS: ALPHA LIPOIC ACID 600 MG PO SCH (21:16)
[2021-05-15] MEDS: Enoxaparin 40 MG/0.4 ML SYR SUBCUT SCH (21:16)
[2021-05-16] MEDS: Vancomycin 1,750 MG in NS 0.9% 500 ml BAG 500 ML IVPB SCH ×2 (01:14→13:52)
[2021-05-16] MEDS ORDERED: Buffered Lidocaine 1% SYRIN 1 ml INTRADERM ONE (02:01)
[2021-05-16 05:27] LABS: Calcium 8.8 mg/dL (8.6-10.3); Magnesium 1.8 mg/dL (1.9-2.7); Potassium 3.8 mmol/L (3.5-5.0); eGFR CKD-EPI 112.6 (>60)
[2021-05-16] MEDS: Potassium Chlor 20 meq TAB.ER PO SCH (08:10)
[2021-05-16] MEDS: Insulin GLARGINE 100 un/ml 10 ml VIAL SUBCUT SCH ×2 (09:42→21:13)
[2021-05-16] MEDS: diPHENhydraMINE 25 mg TAB PO PRN (09:48)
[2021-05-16] MEDS: Cefepime 2 GM in Dextrose 2 GM/50 ML BAG IV SCH ×2 (10:24→22:30)
[2021-05-16] MEDS: Bacitracin OINTMENT TUBE TOPICAL SCH (11:02)
[2021-05-16] MEDS: Clotrimazole 1% CREAM 30 gm TOPICAL SCH ×2 (11:02→21:16)
[2021-05-16] MEDS: Mometasone 220 MCG MDI INH SCH (20:04)
[2021-05-16] MEDS: ALPHA LIPOIC ACID 600 MG PO SCH (21:11)
[2021-05-16] MEDS: Enoxaparin 40 MG/0.4 ML SYR SUBCUT SCH (21:14)
[2021-05-17] MEDS: Bacitracin OINTMENT TUBE TOPICAL SCH ×2 (00:09→11:11)
[2021-05-17] MEDS: Vancomycin 1,750 MG in NS 0.9% 500 ml BAG 500 ML IVPB SCH (01:07)
[2021-05-17] MEDS ORDERED: Magnesium Sulfate 2 gm BAG 2 GM/50 ML BAG IVPB ONE (07:20)
[2021-05-17] MEDS: Insulin GLARGINE 100 un/ml 10 ml VIAL SUBCUT SCH (08:04)
[2021-05-17] MEDS: Potassium Chlor 20 meq TAB.ER PO SCH (08:06)
[2021-05-17] MEDS: Clotrimazole 1% CREAM 30 gm TOPICAL SCH (08:07)
[2021-05-17] MEDS: Cefepime 2 GM in Dextrose 2 GM/50 ML BAG IV SCH (09:36)
[2021-05-17] MEDS ORDERED: Vancomycin Trough Check NOTE FOLLOW UP ONE (12:30)
[2021-05-17 15:41] VITALS: BP 126/71
== END 2021-05-17 17:00 | disposition home health service (06) | DRG 420 ==
LOC: ED 16:15 → EDHOLD 21:55 → SUATTDRO 21:55 → SSU 05-04 02:51
PROVIDERS: ADMIT Student in an Organized Health Care Education/Training Program; ATTEND Internal Medicine